=== PATIENT | male | born 1960 | race Caucasian/White ===

== ENCOUNTER 2022-12-23 12:26 | Outpatient (CLI) | payer MEDICAID, SELFPAY ==
--- NOTE | ~2022-12-23 | MR_ITS ---
MRI of the brain Clinical History: Early onset dementia Technique: Axial and sagittal T1-weighted images were acquired. These were followed by axial T2-weigh brad, diffusion weighted, gradient, and FLAIR images. Findings: There is no acute infarct, intracranial hemorrhage, or mass lesion. Mild to moderate chroni c white matter changes are present in the periventricular white matter bilaterally. Ventricles and subarachnoid spaces are unremarkable. Orbits are unremarkable. Paranasal sinuses and m astoid air cells are clear. Major intracranial flow voids are intact. Sagittal midline structures are intact. IMPRESSION: Mild to moderate chronic microvascular ischemic changes. No other significant findings. Reviewed, dictated and finalized at location M. CREW SPECIALIST
== END 2022-12-23 12:27 | disposition home or self-care (01) ==
PROVIDERS: PCP Family Medicine Adolescent Medicine; Visit Provider Family Medicine Adolescent Medicine
DX: F03.90 Unspecified dementia, unspecified severity, without behavioral disturbance, psychotic disturbance, mood disturbance, and anxiety (principal)
CPT/HCPCS: 70551

== ENCOUNTER 2023-12-14 09:09 | Inpatient (IN) | payer OTHER, SELFPAY ==
[2023-12-14] VITALS (11 sets, daily range): BP systolic 92–127; BP diastolic 64–85; PULSE 60–80; RESP 16–20; TEMP 35.9–36.8; O2SAT 97–100
--- NOTE | ~2023-12-14 | XR_ITS ---
EXAMINATION: XR surgery orthopedic DATE: 12/15/2023 17:15 BRAKE PRESS OPERATOR INDICATION: IT NAIL LT. . TECHNIQUE: 4 fluoroscopic images of the left hip were obtained during left intertrochanteric nail linda cement performed by the surgeon. I was not present in the operating room. Fluoroscopy exposure time w as 3 minutes 46 seconds. Air Kerma 38.349 mGy. DAP 0.7602 mGym2. COMPARISON: 12/14/2023 FINDINGS: Intertrochanteric nail fixation of the proximal left femur, bridging a comminuted intertrochanteric f racture into near-anatomic alignment. IMPRESSION: Fluoroscopic documentation of left intertrochanteric nail placement. Please refer to the operative no te for complete procedural details . Reviewed, dictated and finalized at location K. E PRESS OPERATOR IMPRESSION: Fluoroscopic documentation of left intertrochanteric nail placement. Please ref er to the operative note for complete procedural details .
--- NOTE | ~2023-12-14 | CT_ITS ---
Non-contrast Head CT History: Head injury Technique: Axial non-contrast imaging of the brain was performed. Dose reduction technique was used on this scan by utilizing automated exposure control and iterative reconstruction technique. The dose -length product (DLP) was 756.67 mGy-cm. Findings: There is no evidence of intracranial hemorrhage, mass lesion, or acute infarct. Brain par enchyma appears normal. The ventricles and subarachnoid spaces are normal in size. The calvarium ap pears normal. The visualized paranasal sinuses and mastoid air cells are clear. Impression: No significant abnormality seen. Reviewed, dictated and finalized at [facility]. LOPMENTAL THERAPIST Impression: No significant abnormality seen.
--- NOTE | ~2023-12-14 | XR_ITS ---
XR chest 1V portable DATE: 12/14/2023 10:20 INDICATION: Preoperative evaluation TECHNIQUE: Portable supine AP views COMPARISON: None FINDINGS: Normal heart size. No hilar or mediastinal enlargement. No pulmonary infiltrate or consolid ation, pleural effusion or pulmonary vascular congestion or pneumothorax is evident. Degenerative spu rring of the thoracic spine. IMPRESSION: No active cardiopulmonary disease Reviewed, dictated and finalized at location B. OR COST ANALYST
--- NOTE | ~2023-12-14 | XR_ITS ---
XR hip LT 2V w AP pelvis DATE: 12/14/2023 09:56 INDICATION: Fall today. Left hip pain, limited range of motion TECHNIQUE: AP pelvis. AP and crosstable lateral views of left hip. COMPARISON: None FINDINGS: There is a comminuted intertrochanteric left femoral fracture with varus deformity. Normal alignment at the pubic symphysis, sacroiliac joints and both hip joints. No pelvic fracture or bone destruction. IMPRESSION: Comminuted intertrochanteric left hip fracture with varus deformity Reviewed, dictated and finalized at location B. ORIZATION REPRESENTATIVE
--- NOTE | 2023-12-14 10:07 | ECG_ITS ---
Measurements Intervals [place] Rate: 65 P: 70 [place]: 172 QRS: 71 QRSD: 92 T: 79 QT: 424 QTc: 443 Interpretive Statements SINUS RHYTHM WITH SINUS ARRHYTHMIA CANNOT RULE OUT SEPTAL INFARCT, AGE INDETERMINATE BORDERLINE ST-T WAVE ABNORMALITY- HIGH LATERAL LEADS BASELINE WANDER- I, II, III, AVR, AVL, AVF, V4-V6 ABNORMAL ECG NO PREVIOUS ECG AVAILABLE FOR COMPARISON Electronically Signed On 12-14-2023 11:56:53 LINUX UNIX ENGINEER by Greg Watson D.O.
--- NOTE | 2023-12-14 10:17 | ED.FALL ---
HPI - Fall General Chief Complaint: Fall Stated Complaint: fall/ hip pain Time Seen by Provider: 12/14/23 09:34 History of Present Illness HPI Narrative: 63-year-old male history of dementia presenting to the emergency department for evaluation after having a ground level fall. Patient is unsure if he struck his head. Patient is complaining of left hip pain. Patient is not on any blood thinners and patient has no cardiac history. Related Data Allergies Allergy/AdvReac Type Severity Reaction Status Date / Time No Known Allergies Allergy Verified 09/04/23 10:20 Review of Systems Review of Systems: All systems reviewed & are unremarkable except as noted in HPI and below PMFSH Past Medical History Medical History Early onset Alzheimer's dementia Intertrochanteric fracture Family History Family History Father Colon cancer Lung cancer Mother Lung cancer Dementia Sibling Dementia Social History Social History Smoking status: Current every day smoker Alcohol intake: never Substance use: never Do You Feel Safe in your Home?: Yes Lack of Transportation: No Lack of Food: Never True Current Housing: I Have Housing Concerned About Future Housing: No Difficulty Paying Gas/Electric Bills: No Difficulty Paying for Meds: No Currently Unemployed: No Education: Decline to Answer Difficulty w/ Childcare or Family Care: No Spiritual care concerns: No Exam Narrative: APPEARANCE: Well appearing, no pain, no distress, well-nourished. HEAD: normocephalic, atraumatic. EYES: PERRLA/EOMI, conjunctivae clear. NOSE: Normal no drainage EARS:TMS clear with good light reflex. THROAT: Pharynx clear, no exudate. NECK: Supple. No adenopathy, no masses. RESPIRATORY: Airway patent, respirations nonlabored. Clear to auscultation bilaterally, no rales, rhonchi, wheezing. CARDIOVASCULAR: Regular rate and rhythm without murmurs rubs or gallops. ABDOMINAL: Soft, nontender, nondistended, normal bowel sounds MUSCULOSKELETAL: Neurovascularly intact, left hip tenderness to palpation NEURO: Alert. Cranial nerves II through XII intact. Grossly intact SKIN: Warm, dry. Normal Color Course Course Emergency Course: 63-year-old male presenting to the emergency department for evaluation after having a ground level fall, left hip x-ray does show an intertrochanteric fracture, head CT shows no acute abnormality. Orthopedics was consulted. Case was discussed with the hospitalist. Patient and family are updated on the results of the workup and plan for admission Vital Signs Vital signs: Vital Signs Temperature 98.2 F 12/14/23 09:08 Pulse Rate 60 12/14/23 09:08 Respiratory Rate 20 12/14/23 09:08 Blood Pressure 116/85 12/14/23 09:08 Pulse Oximetry 100 12/14/23 09:08 Temperature 96.7 F L 12/14/23 15:00 Pulse Rate 64 12/14/23 15:00 Respiratory Rate 18 12/14/23 15:00 Blood Pressure 127/76 12/14/23 15:00 Pulse Oximetry 97 12/14/23 15:27 Oxygen Delivery Room Air 12/14/23 15:27 Fraction of Inspired Oxygen 21 12/14/23 15:27 MDM - Fall Lab Data Attestation: I reviewed the patient's lab results. 12/14/23 10:12 12/14/23 10:12 Labs: Lab Results 12/14/23 Range/Units 10:12 WBC 13.2 H (4.5-10.0) K/mm3 RBC 4.80 (4.6-6.20) M/mm3 Hgb 14.2 (14.0-18.0) g/dL Hct 44.2 (42.0-52.0) % MCV 92.1 (80-100) fl MCH 29.6 (26-34) pg MCHC 32.1 (32-36) g/dl RDW 12.9 (11.5-14.5) % Plt Count 307 (150-375) k/mm3 MPV 10.1 (7.4-10.4) fl Immature Gran % (Auto) 0.5 (0-0.5) % Neut % (Auto) 83.8 H (45.5-73.1) % Lymph % (Auto) 9.9 L (18.3-44.2) % Gem % (Auto) 5.2 (2.6-8.5) % Eos % (Auto) 0.2 (0-4.4) % Baso % (Auto) 0.4 (0.2-1.2) % Lymph # (Aut
[2023-12-14 10:20] LABS: Basophils Absolute Auto 0.1 K/mm3 (0.0-0.1); Basophils Percent Auto 0.4 % (0.2-1.2); Eosinophils Percent Auto 0.2 % (0-4.4); Hematocrit 44.2 % (42.0-52.0); Hemoglobin 14.2 g/dL (14.0-18.0); Immature Granulocyte Absolute 0.06 K/mm3 (0.00-0.031); Immature Granulocyte Percent A 0.5 % (0-0.5); Lymphocytes Absolute Auto 1.31 K/mm3 (0.9-3.2); Lymphocytes Percent Auto 9.9 % (18.3-44.2); Mean Corpuscular HGB Conc 32.1 g/dl (32-36); Mean Corpuscular Hemoglobin 29.6 pg (26-34); Mean Corpuscular Volume 92.1 fl (80-100); Mean Platelet Volume 10.1 fl (7.4-10.4); Monocytes Absolute Auto 0.7 K/mm3 (0.1-0.6); Monocytes Percent Auto 5.2 % (2.6-8.5); Neutrophils Absolute Auto 11.1 K/mm3 (1.3-6.7); Neutrophils Percent Auto 83.8 % (45.5-73.1); Platelet Count Result 307 k/mm3 (150-375); Red Cell Distribution Width 12.9 % (11.5-14.5); White Blood Count 13.2 K/mm3 (4.5-10.0)
[2023-12-14 10:32] LABS: Alanine Aminotransferase 18 U/L (6-50); Albumin Level 3.8 g/dL (3.5-5.1); Alkaline Phosphatase 102 U/L (38-126); Anion Gap 7 mmol/L (8-16); Aspartate Amino Transferase 19 U/L (17-59); Blood Urea Nitrogen 14 mg/dL (9-20); Carbon Dioxide 24 mmol/L (22-30); Chloride 107 mmol/L (98-107); Estimated CRCL calculation 90 ml/min; Estimated Glomerular Filt Rate > 60; Glucose 121 mg/dL (65-110); Partial Thromboplastin Time 26.9 SECONDS (22.3-36.8); Potassium 3.6 mmol/L (3.4-5.0); Prothrombin Time 13.9 Seconds (11.1-14.7); Sodium 138 mmol/L (137-145)
--- NOTE | 2023-12-14 12:10 | PC.NURSE ---
Heart healthy tray ordered at 1210
--- NOTE | 2023-12-14 12:15 | PM.IMHP ---
H&P: HPI History of Present Illness Date/Time: 12/14/23 12:15 Chief Complaint: Lt hip pain, fracture Narrative: This is a 63-year-old male patient with advanced early-onset dementia and depression who had an unwitnessed fall at home complaining of left hip pain. Brought to ER via EMS found to have left hip fracture. Orthopedics consulted agreed to see him and likely operative repair tomorrow. Patient's family was at bedside for a while and then they walked away and patient forgot that he had injured his hip tried to get out of bed and had another unwitnessed fall this time in the emergency department. No additional complaints of pain or evident injury and patient was evaluated by ER provider who initially evaluated him. Patient's only complaint is left hip pain to palpation or certain movements. Patient does smoke whenever he has cigarettes but can go several days without asking for cigarettes. He lives with significant other and his sisters also present providing a lot of information. Patient has very poor memory especially short-term. Review of Systems Review of Systems: ROS unobtainable: Yes unobtainable due to mental status PMFSH Past Medical History Medical History Early onset Alzheimer's dementia Intertrochanteric fracture Family History Family History Father Colon cancer Lung cancer Mother Lung cancer Dementia Sibling Dementia Social History Social History Smoking status: Current every day smoker Alcohol intake: never Substance use: never Do You Feel Safe in your Home?: Yes Lack of Transportation: No Lack of Food: Never True Current Housing: I Have Housing Concerned About Future Housing: No Difficulty Paying Gas/Electric Bills: No Difficulty Paying for Meds: No Currently Unemployed: No Education: Decline to Answer Difficulty w/ Childcare or Family Care: No Spiritual care concerns: No Meds Home Medications and Allergies Home Medications Medication Instructions Recorded Confirmed Type donepezil 10 mg tablet 10 mg PO QHS #30 tabs 04/08/23 12/14/23 Rx sertraline 50 mg tablet 50 mg PO DAILY #90 tabs 10/01/23 12/14/23 Rx memantine 10 mg tablet 10 mg PO BID #60 tabs 11/01/23 12/14/23 Rx Allergies Allergy/AdvReac Type Severity Reaction Status Date / Time No Known Allergies Allergy Verified 09/04/23 10:20 Vital Signs Vital Signs - 24 hr 12/14/23 09:08 12/14/23 09:57 12/14/23 10:00 Temperature 36.8 C Pulse Rate 60 Respiratory Rate 20 Blood Pressure 116/85 Pulse Oximetry 100 98 99 12/14/23 10:01 12/14/23 10:15 12/14/23 10:16 Temperature Pulse Rate Respiratory Rate Blood Pressure 112/65 115/71 Pulse Oximetry 99 99 97 12/14/23 10:38 Temperature Pulse Rate Respiratory Rate Blood Pressure 114/70 Pulse Oximetry Exam Narrative: APPEARANCE: Well appearing, no distress, well-nourished. HEAD: normocephalic, atraumatic. EYES: PERRLA/EOMI, conjunctivae clear. NOSE: Normal no drainage NECK: Supple. No adenopathy, no masses. RESPIRATORY: Airway patent, respirations nonlabored. Clear to auscultation bilaterally, no rales, rhonchi, wheezing. CARDIOVASCULAR: Regular rate and rhythm without murmurs rubs or gallops. ABDOMINAL: Soft, nontender, nondistended, normal bowel sounds MUSCULOSKELETAL: Neurovascularly intact, left hip tenderness to palpation NEURO: Alert. Cranial nerves II through XII intact. Grossly intact SKIN: Warm, dry. Normal Color H&P: Results Labs Labs: Short CBC 12/14/23 Range/Units 10:12 WBC 13.2 H (4.5-10.0) K/mm3 Hgb 14.2 (14.0-18.0) g/dL Hct 44.2 (42.0-52.0) % Plt Count 307 (150-375) k/mm3 [facility] 12/14/23 10:12 Sodium 138 Potassium 3.6 Chloride 107 Carbon Dioxide 24 BUN 14 Creatinine 0.80
--- NOTE | 2023-12-14 12:38 | PC.NURSE ---
food tray given to pt
[2023-12-14] MEDS: HYDROmorphone HCL INJ (*CRX) 1 MG/ML SYR 0.5 MG IV PUSH ×3 (13:32→22:58)
[2023-12-14] MEDS: ONDANSETRON INJ 4 MG/2 ML VIAL IV PUSH (13:32)
--- NOTE | 2023-12-14 13:38 | PC.NURSE ---
Pt forgot about injury to the hip, attempted to get out of bed to urinate and fell. No other injuries noted, Dr. Abad aware, pt was assisted into bed.
[2023-12-14 14:07] LABS: Appearance Urine Turbid (Clear); Bacteria Urine None Seen /hpf; Bilirubin Urine Negative (Negative); Color Urine Yellow (Yellow); Glucose Urine UA Negative (Negative); Ketones Urine Negative (Negative); Leukocyte Esterase Ur Negative LEU/UL (Negative); Nitrate Urine Negative (Negative); Non Pathogenic Casts 0-2; Protein Urine Trace mg/dL (Negative); Specific Grav Ur 1.016 (1.001-1.035); Squamous Epithelial Cell Urine None seen /hpf (Few); Urobilinogen Urine 0.2 mg/dL (<2.0); WBC Urine 0-5 /hpf; pH Urine 8.5 (5.0-9.0)
[2023-12-14 14:11] LABS: Add Urine Microscopic? YES
--- NOTE | 2023-12-14 14:25 | ADMGEN ---
This patient, Mauricio Simmons, was admitted to [facility] Surg Room 325-01. Patient/family oriented to hospital policies and general routines including ID bracelet, bed and alarms, visiting hours, pain management, procedures, bathroom and other care routines, personal items, smoking policy, room service/diet, and visiting hours. Information on how to activate the Rapid Response Team has been discussed. Patient/Family are encouraged to report perceived risks to care and to ask questions if they do not understand what they are told or what they should do.
--- NOTE | 2023-12-14 15:43 | PM.CNOR ---
Assessment and Plan Assessment and plan (1) Intertrochanteric fracture: Qualifiers: Encounter type: initial encounter Fracture type: closed Fracture alignment: displaced Laterality: left Qualified Code(s): S72.142A - Displaced intertrochanteric fracture of left femur, initial encounter for closed fracture Code(s): S72.143A - Displaced intertrochanteric fracture of unspecified femur, initial encounter for closed fracture Status: Acute Assessment and Plan: History, exam and radiographs reviewed with the patient and his sister who is his power of pipefitter welder at the bedside. Radiographs of the left hip reveal comminuted intertrochanteric left hip fracture with varus deformity. Fracture type, condition, nature, etiology and course of natural history reviewed. Conservative and operative treatment options as well as the risks and benefits of both discussed. Patient and sister for for operative treatment. Risks of surgery including but not limited to neurovascular damage, wound complications, blood clot, pulmonary embolus, stroke, myocardial infarction, anesthetic risks up to and including were reviewed. Continued pain and possible dysfunction were explained. No guarantees were offered. The patient /family understands and wishes to proceed. Plan: Left IT Nail by Dr. Hines Pain Control. Hold anticoagulation. Obtain consent. NPO at midnight. Okay to eat today, diet orders from hospitalist. Bedrest. HIGH FALL RISK PRECAUTIONS given patients memory loss. (2) Early onset Alzheimer's dementia: Code(s): G30.0 - Alzheimer's disease with early onset; F02.80 - Dementia in other diseases classified elsewhere, unspecified severity, without behavioral disturbance, psychotic disturbance, mood disturbance, and anxiety Status: Acute Assessment and Plan: POA at bedside. Obtain consent from patient's sister. High fall risk precautions. Plan Reviewed history, exam, radiographs and current labs with attending MD and covering surgeon, Dr. Hines, who agrees with current plan as indicated above. No further recommendations from Dr. Hines at this time. History of Present Illness HPI Consult date: 12/14/23 Consult reason: fracture Chief complaint: Left Hip Fracture Narrative: 63-year-old male presented to the emergency room from home accompanied by his sister after an unwitnessed fall. The patient has a history of early-onset dementia cannot recall the nature of his fall. His girlfriend found him in the basement in the bathroom using a PVC pipe to ambulate. He was unable to ambulate on the left lower extremity and they thought that it was dislocated. This prompted their arrival to the emergency room. Radiographs in the ER reveal a comminuted intertrochanteric fracture of the left hip with varus deformity. Patient was admitted for further evaluation and orthopedic consult. Review of Systems Constitutional: Constitutional: Reports no additional constitutional complaints, Denies chills, Denies fatigue, Denies fever(s), Denies headache(s) and Denies weakness Eyes: Eyes: Denies change in vision ENT: Reports Normal hearing present and Denies headache(s) Cardiovascular: Cardiovascular: Denies chest pain and Denies dyspnea Respiratory: Respiratory: Denies cough, Denies dyspnea and Denies wheezing Gastrointestinal: Gastrointestinal: Denies constipation, Denies diarrhea, Denies nausea and Denies vomiting Genitourinary: Genitourinary: Denies hematuria and Denies dysuria Musculoskeletal: Musculoskeletal: Reports as per HPI, Denies numbness and Denies tingling Integumentary/Breasts: Skin/Breast: Reports as per HPI Neurologic: Reports as per HPI, Reports Normal hearing present, Denies headache(s), Denies numbness, Denies tingling and Denies weakness Psychiatric: Psychiatric: Reports no additional psychiatric complaints Endocrine: Endocrine: Reports no additional endocrine complaints and Denies fatigu
[2023-12-14] MEDS: MEMANTINE 10 MG TABLET PO (17:25)
[2023-12-14] MEDS: HYDROcodone/acetaminophen (*CRX) 5-325 MG TABLET 1 TAB PO ×2 (20:08→23:50)
[2023-12-14] MEDS: DONEPEZIL HCL 10 MG TABLET PO (20:08)
[2023-12-14] MEDS: SODIUM CHLORIDE 0.9% IV 1,000 ML 100 ML IV CONT (23:05)
[2023-12-15] VITALS (10 sets, daily range): BP systolic 88–124; BP diastolic 48–80; PULSE 61–135; RESP 8–22; TEMP 36.5–36.8; O2SAT 92–100
[2023-12-15] MEDS: CYCLOBENZAPRINE HCL 10 MG TABLET PO (00:27)
[2023-12-15] MEDS: HYDROmorphone HCL INJ (*CRX) 1 MG/ML SYR IV PUSH ×3 (05:09→21:11)
[2023-12-15] MEDS: HYDROcodone/acetaminophen (*CRX) 5-325 MG TABLET 1 TAB PO (06:33)
[2023-12-15 06:47] LABS: Basophils Percent Auto 0.2 % (0.2-1.2); Eosinophils Percent Auto 0.1 % (0-4.4); Hematocrit 39.5 % (42.0-52.0); Immature Granulocyte Absolute 0.07 K/mm3 (0.00-0.031); Immature Granulocyte Percent A 0.5 % (0-0.5); Lymphocytes Absolute Auto 1.81 K/mm3 (0.9-3.2); Lymphocytes Percent Auto 12.6 % (18.3-44.2); Mean Corpuscular HGB Conc 32.9 g/dl (32-36); Mean Corpuscular Hemoglobin 29.8 pg (26-34); Mean Corpuscular Volume 90.6 fl (80-100); Mean Platelet Volume 9.5 fl (7.4-10.4); Monocytes Absolute Auto 1.7 K/mm3 (0.1-0.6); Monocytes Percent Auto 11.5 % (2.6-8.5); Neutrophils Absolute Auto 10.8 K/mm3 (1.3-6.7); Neutrophils Percent Auto 75.1 % (45.5-73.1); Platelet Count Result 289 k/mm3 (150-375); Red Blood Count 4.36 M/mm3 (4.6-6.20); Red Cell Distribution Width 12.9 % (11.5-14.5); White Blood Count 14.4 K/mm3 (4.5-10.0)
[2023-12-15 07:00] LABS: Alanine Aminotransferase 17 U/L (6-50); Albumin Level 3.5 g/dL (3.5-5.1); Alkaline Phosphatase 84 U/L (38-126); Anion Gap 5 mmol/L (8-16); Aspartate Amino Transferase 20 U/L (17-59); Bilirubin,Total 0.9 mg/dL (0.2-1.3); Blood Urea Nitrogen 14 mg/dL (9-20); Calcium 8.6 mg/dL (8.4-10.2); Carbon Dioxide 24 mmol/L (22-30); Chloride 107 mmol/L (98-107); Estimated CRCL calculation 90 ml/min; Estimated Glomerular Filt Rate > 60; Glucose 123 mg/dL (65-110); Magnesium 2.2 mg/dL (1.6-2.3); Potassium 4.1 mmol/L (3.4-5.0); Sodium 136 mmol/L (137-145)
--- NOTE | 2023-12-15 07:20 | WPDHPUPDATE1 ---
History and Physical Update Update Date/Time: 12/15/23 07:20 History and Physical has been reviewed, including an updated exam of the patient. There are NO changes in the patient's condition. Risks, benefits, and alternatives have been discussed and questions answered. Patient agrees to proceed with procedure.
[2023-12-15] MEDS: SERTRALINE HCL 50 MG TABLET PO (10:00)
[2023-12-15] MEDS: MEMANTINE 10 MG TABLET PO (10:00)
[2023-12-15] MEDS: SODIUM CHLORIDE 0.9% IV 1,000 ML 100 ML IV CONT (11:45)
--- NOTE | 2023-12-15 15:04 | PM.IMPN ---
Progress Note: A&P Assessment and Plan (1) Intertrochanteric fracture: Qualifiers: Encounter type: initial encounter Fracture type: closed Fracture alignment: displaced Laterality: left Qualified Code(s): S72.142A - Displaced intertrochanteric fracture of left femur, initial encounter for closed fracture Code(s): S72.143A - Displaced intertrochanteric fracture of unspecified femur, initial encounter for closed fracture Status: Acute Assessment and Plan: Dr. Lombardi - plan for Left IT Nail this evening PRN pain control will order PT/OT post op for d/c planning (2) Early onset Alzheimer's dementia: Code(s): G30.0 - Alzheimer's disease with early onset; F02.80 - Dementia in other diseases classified elsewhere, unspecified severity, without behavioral disturbance, psychotic disturbance, mood disturbance, and anxiety Status: Acute Assessment and Plan: Impulsive and forgetful Fall precautions. continue home meds Subjective Date/time seen: 12/15/23 15:04 Interval history: Patient in no acute distress today, at his baseline. at bedside. He reports tenderness over his left hip with movement and palpation, but controlled. Ortho - Dr. Lombardi to take to OR for repair this evening. Will order PT/OT for d/c planning when appropriate. Review of Systems Review of Systems: ROS unobtainable: Yes unobtainable due to mental status Exam Narrative: APPEARANCE: Well appearing, no distress, well-nourished. HEAD: normocephalic, atraumatic. EYES: PERRLA/EOMI NECK: Supple. No adenopathy, no masses. RESPIRATORY: Airway patent, respirations nonlabored. Clear to auscultation bilaterally, no rales, rhonchi, wheezing. CARDIOVASCULAR: RRR without murmurs rubs or gallops. ABDOMINAL: Soft, nontender, nondistended, normal bowel sounds MUSCULOSKELETAL: Neurovascularly intact, left hip tenderness to palpation NEURO: Alert. Cranial nerves II through XII intact. Grossly intact SKIN: Warm, dry. Normal Color. PSYCH: Difficult, but appropriate. Objective Data Vital Signs Vital Signs: Vital Signs - 24 hr 12/14/23 15:27 12/14/23 20:17 12/14/23 20:00 Temperature 97.9 F Pulse Rate 80 Respiratory Rate 16 Blood Pressure 92/64 L Pulse Oximetry 97 98 Oxygen Delivery Room Air Room Air Fraction of Inspired Oxygen 12/15/23 05:55 Temperature 97.9 F Pulse Rate 61 Respiratory Rate 16 Blood Pressure 115/71 Pulse Oximetry 95 Oxygen Delivery Fraction of Inspired Oxygen Intake/Output Intake/Output: Intake & Output 12/12/23 12/13/23 12/14/23 12/15/23 23:59 23:59 23:59 23:59 Intake Total 490 1550 Output Total 200 500 Balance 290 1050 Meds/Results Medications: Active Medications Generic Name Dose Route Start Last Admin Trade Name Freq PRN Reason Stop Dose Admin Acetaminophen 650 mg 12/14/23 14:55 Acetaminophen 325 Mg Tablet PO Q4H PRN Mild Pain (1-3) or Fever Hydrocodone Bitart/Acetaminophen 1 tab 12/14/23 14:55 12/15/23 06:33 Hydrocodone/Acetaminophen (*Crx) 5-325 Mg Tablet PO 1 tab Q4H PRN Administration Pain Rated 4-6 Cyclobenzaprine HCl 10 mg 12/14/23 23:59 12/15/23 00:27 Cyclobenzaprine Hcl 10 Mg Tablet PO 10 mg Q8H PRN Administration Muscle Spasm Donepezil HCl 10 mg 12/14/23 21:00 12/14/23 20:08 Donepezil Hcl 10 Mg Tablet PO 10 mg QHS VANDA Administration Hydromorphone HCl 1 mg 12/15/23 00:04 12/15/23 12:49 Hydromorphone Hcl Inj (*Crx) 1 Mg/Ml Syr IV PUSH 1 mg Q3H PRN Administration Pain Rated 7-10 Sodium Chloride 1,000 mls @ 100 mls/hr 12/15/23 00:01 12/15/23 11:45 Normal Saline Iv IV CONT 100 mls/hr .Q10H VANDA Administration Memantine 10 mg 12/14/23 17:00 12/15/23 10:00 Memantine 10 Mg Tablet PO 10 mg BID VANDA Administration Ondansetron HCl 4 mg 12/14/23 10:22 12/14/23 13:32 Ondansetron Inj 4 Mg/2 Ml Vial IV PUSH 4 mg Q4H PRN
[2023-12-15] MEDS: TRANEXAMIC ACID 1,000MG/ISO100 1,000 MG/100 ML BAG 200 MG IVPB (15:54)
--- NOTE | 2023-12-15 16:16 | WPDANESEPPF ---
Anes - Initial Pre Proc Eval Procedure: Operation Date: 12/15/23 17:00 Proposed Procedures p Left Intertrochanteric Nail - Branden Hines MD Date/Time: 12/15/23 16:16 Surgeon: Martha Mendoza MD Pre Op Diagnosis: Left Hip Fracture Patient Data Age: 63 Gender: M Height: 1.93 m Weight: 76.7 kg Last Vital Signs Temp 36.6 C 12/15/23 05:55 Pulse 61 12/15/23 05:55 Resp 16 12/15/23 05:55 BP 115/71 12/15/23 05:55 Pulse Ox 95 12/15/23 05:55 O2 Del Method Room Air 12/15/23 10:00 FiO2 21 12/14/23 15:27 Allergies Allergy/AdvReac Type Severity Reaction Status Date / Time No Known Allergies Allergy Verified 12/15/23 15:47 Home Medications Medication Instructions Recorded Confirmed Type donepezil 10 mg tablet 10 mg PO QHS #30 tabs 04/08/23 12/14/23 Rx sertraline 50 mg tablet 50 mg PO DAILY #90 tabs 10/01/23 12/14/23 Rx memantine 10 mg tablet 10 mg PO BID #60 tabs 11/01/23 12/14/23 Rx Laboratory Tests 12/15/23 06:34 WBC 14.4 H K/mm3 (4.5-10.0) RBC 4.36 L M/mm3 (4.6-6.20) Hgb 13.0 L g/dL (14.0-18.0) Hct 39.5 L % (42.0-52.0) MCV 90.6 fl (80-100) MCH 29.8 pg (26-34) MCHC 32.9 g/dl (32-36) RDW 12.9 % (11.5-14.5) Plt Count 289 k/mm3 (150-375) MPV 9.5 fl (7.4-10.4) Immature Gran % (Auto) 0.5 % (0-0.5) Neut % (Auto) 75.1 H % (45.5-73.1) Lymph % (Auto) 12.6 L % (18.3-44.2) [place] % (Auto) 11.5 H % (2.6-8.5) Eos % (Auto) 0.1 % (0-4.4) Baso % (Auto) 0.2 % (0.2-1.2) Lymph # (Auto) 1.81 K/mm3 (0.9-3.2) [place] # (Auto) 1.7 H K/mm3 (0.1-0.6) Eos # (Auto) 0.0 K/mm3 (0-0.3) Baso # (Auto) 0.0 K/mm3 (0.0-0.1) Abs Immat Gran (auto) 0.07 H K/mm3 (0.00-0.031) Absolute Neuts (auto) 10.8 H K/mm3 (1.3-6.7) Absolute Nucleated RBC 0.0 K/mm3 (0.0-0.012) Nucleated RBC % 0.0 % (0.0-0.2) Sodium 136 L mmol/L (137-145) Potassium 4.1 mmol/L (3.4-5.0) Chloride 107 mmol/L (98-107) Carbon Dioxide 24 mmol/L (22-30) Anion Gap 5 L mmol/L (8-16) BUN 14 mg/dL (9-20) Creatinine 0.80 mg/dL (0.7-1.3) Estim Creat Clear Calc 90 ml/min Estimated GFR > 60 (59 - ) Glucose 123 H mg/dL (65-110) Calcium 8.6 mg/dL (8.4-10.2) Magnesium 2.2 mg/dL (1.6-2.3) Total Bilirubin 0.9 mg/dL (0.2-1.3) AST 20 U/L (17-59) ALT 17 U/L (6-50) Alkaline Phosphatase 84 U/L (38-126) Total Protein 6.0 L g/dL (6.3-8.2) Albumin 3.5 g/dL (3.5-5.1) Patient hx anesthesia problems: none Family hx anesthesia problems: none Results Review: All pre-operative results and documents have been reviewed as part of the pre-operative evaluation. [facility] Past Medical History Medical History Early onset Alzheimer's dementia Intertrochanteric fracture Family History Family History Father Colon cancer Lung cancer Mother Lung cancer Dementia Sibling Dementia Social History Social History Smoking status: Current every day smoker Alcohol intake: never Substance use: never Do You Feel Safe in your Home?: Yes Lack of Transportation: No Lack of Food: Never True Current Housing: I Have Housing Concerned About Future Housing: No Difficulty Paying Gas/Electric Bills: No Difficulty Paying for Meds: No Currently Unemployed: No Education: Decline to Answer Difficulty w/ Childcare or Family Care: No Spiritual care concerns: No Anes - Eval Final PreProcedure Day of Procedure 12/15/23 16:16 Patient weight: normal Heart: regular rate and rhythm Lungs: decreased breath sounds Airway: Mallampati scale class II Neurological: alert and oriented Last oral intake: >/= 8 hours ASA classification: III Sabina
[2023-12-15] MEDS: LACTATED RINGERS 1,000 ML 30 ML IV CONT ×2 (16:43→18:27)
--- NOTE | 2023-12-15 16:51 | SUR.PHASEII ---
2238 DR. PADILLA HERE TO SEE PT.
--- NOTE | 2023-12-15 16:51 | SUR.PREOP ---
VOIDED X 1.
--- NOTE | 2023-12-15 16:52 | SUR.PREOP ---
PATIENT AWAKE, ALERT, AWAITING SURGERY. NAD.
--- NOTE | 2023-12-15 17:00 | SUR.PREOP ---
DR. LIMA HERE TO SEE PATIENT AND TO GAMA SITE. DAT INSTRUCTOR'S HERE.
[2023-12-15] MEDS: ceFAZolin 2 GM/D5W 50 ML 2 GM/50 ML BAG IVPB (17:04)
[2023-12-15] MEDS: TRANEXAMIC ACID 1,000 MG/10 ML AMPUL 1000 MG IV PUSH (18:14)
--- NOTE | 2023-12-15 18:19 | W.PM.PROC2 ---
Procedure Note - Detailed Date of Procedure 12/15/23 Pre-op Diagnosis Left Hip Fracture Post-op Diagnosis Same Procedure Performed INSERTION INTRAMEDULLARY ADRIANNA LEFT HIP Surgeon Branden Hines MD Anesthesia General Description of Procedure THE PATIENT WAS TAKEN TO THE OPERATING ROOM AND PLACED ON A FRACTURE TABLE AFTER GIVEN GENERAL ANESTHESIA. THE LEFT LOWER EXTREMITY WAS PLACED IN A TRACTION BOOT AND USING SOME TRACTION AND INTERNAL ROTATION THE INNER TROCHANTERIC FRACTURE WAS REDUCED TO ANATOMIC POSITION. NEXT THE LEFT LOWER EXTREMITY WAS PREPPED AND DRAPED IN THE STERILE FASHION. AN INCISION WAS MADE PROXIMAL TO THE TIP OF THE GREATER TROCHANTER AND DISSECTION CONTINUED TILL THE TIP OF THE GREATER TROCHANTER WAS PALPATED. A GUIDE PIN WAS PLACED DOWN THE FEMORAL CANAL AND PAST THE FRACTURE SITE. THIS WAS CHECKED ON FLUOROSCOPY AND FOUND TO BE IN GOOD POSITION. AN INITIAL REAMER WAS USED TO REAM THE FEMORAL CANAL. AN 11 BY 200 MM ARTHREX TROCHANTERIC ADRIANNA WAS INSERTED TILL THE CORRECT POSITION WAS IDENTIFIED ON XRAY. A GUIDE PIN WAS INSERTED THROUGH THE FEMORAL NECK AT 125 DEG ANGLE TILL IT REACHED THE TIP OF THE SUB CHONDRAL BONE SEEN ON XRAY. AFTER REAMING, LAG SCREW WAS INSERTED MEASURING 110 MM. XRAYS SHOWED IT TO BE IN GOOD POSITION. THE LAG SCREW WAS LOCKED PROXIMALLY WITH A LOCKING SCREW. NEXT A DISTAL LOCKING SCREW WAS PLACED ACROSS THE ADRIANNA AND WAS IN GOOD POSITION ON XRAY. THE TRACTION WAS RELEASED. THE WOUNDS WERE WASHED. THE DEEP FASCIA WAS REPAIRED WITH 0 VICRYL SUTURE, THE SUB CUTANEOUS LAYER WITH 2-0 VICRYL, AND THE SKIN WITH ZAHEER. THE WOUNDS WERE WASHED AND THEN STERILE DRESSING WAS APPLIED. PATIENT WAS EXTUBATED AND SENT TO RECOVERY ROOM. Estimated Blood Loss 100 Urine Output 500 Complications No immediate complications Condition Stable Disposition PACU
[2023-12-15] MEDS: LORazepam INJ (*CRX) 2 MG/ML VIAL 1 MG IV PUSH (21:40)
[2023-12-15] MEDS: HALOPERIDOL LACTATE 5 MG/ML VIAL IM (21:40)
[2023-12-15] MEDS: diphenhydrAMINE HCl INJ 50 MG/ML VIAL IV PUSH (21:50)
--- NOTE | 2023-12-15 22:09 | ECG_ITS ---
Measurements Intervals [place] Rate: 104 P: 79 KS: 170 QRS: 51 QRSD: 89 T: 32 QT: 333 QTc: 439 Interpretive Statements SINUS TACHYCARDIA BORDERLINE ST-T WAVE ABNORMALITY- ANTEROLAT/INF LEADS BASELINE ARTIFACT- I, II, III, AVR, AVL, AVF, V1-V2, V4-V5 BORDERLINE ECG COMPARED TO ECG 12/14/2023 10:36:11 SINUS TACHYCARDIA NOW PRESENT Electronically Signed On 12-16-2023 15:53:22 TUMBLER PLATER by Greg Watson D.O.
--- NOTE | 2023-12-15 22:26 | PC.NURSE ---
Pt came back to the unit from OR this evening right after shift change. Pt was getting agitated quickly after arrival to unit. Pt was trying to get up, climbing over rails, and becoming aggressive towards staff. Situation was worsening and a code purple was called. notified and medication orders given. Pt given medication with no direct results. Pt continued to get more aggressive, and was put in 3 point restraints with his operative side, remaining free of restraints. Medication finally began to calm pt, right ankle restraint was removed, and pt remains in soft wrist restraints. Pt now resting comfortably with stable vital signs and a sitter at bedside.
[2023-12-16 01:00] VITALS: BP 111/54; PULSE 92; RESP 19; O2SAT 100
[2023-12-16 03:35] VITALS: BP 118/62; PULSE 81; RESP 19; O2SAT 100
[2023-12-16] MEDS: HYDROmorphone HCL INJ (*CRX) 1 MG/ML SYR IV PUSH ×2 (03:46→06:23)
[2023-12-16 05:00] VITALS: BP 122/64; PULSE 74; RESP 19; O2SAT 100
[2023-12-16 07:31] LABS: Basophils Percent Auto 0.3 % (0.2-1.2); Hematocrit 37.7 % (42.0-52.0); Hemoglobin 12.1 g/dL (14.0-18.0); Immature Granulocyte Absolute 0.09 K/mm3 (0.00-0.031); Immature Granulocyte Percent A 0.6 % (0-0.5); Lymphocytes Absolute Auto 1.26 K/mm3 (0.9-3.2); Lymphocytes Percent Auto 8.4 % (18.3-44.2); Mean Corpuscular HGB Conc 32.1 g/dl (32-36); Mean Corpuscular Hemoglobin 30.2 pg (26-34); Mean Platelet Volume 9.7 fl (7.4-10.4); Monocytes Absolute Auto 1.8 K/mm3 (0.1-0.6); Monocytes Percent Auto 11.8 % (2.6-8.5); Neutrophils Absolute Auto 11.8 K/mm3 (1.3-6.7); Neutrophils Percent Auto 78.9 % (45.5-73.1); Platelet Count Result 258 k/mm3 (150-375); Red Blood Count 4.01 M/mm3 (4.6-6.20); Red Cell Distribution Width 13.2 % (11.5-14.5)
[2023-12-16 07:47] LABS: Alanine Aminotransferase 25 U/L (6-50); Albumin Level 3.4 g/dL (3.5-5.1); Alkaline Phosphatase 77 U/L (38-126); Anion Gap 7 mmol/L (8-16); Aspartate Amino Transferase 64 U/L (17-59); Bilirubin,Total 1.2 mg/dL (0.2-1.3); Blood Urea Nitrogen 15 mg/dL (9-20); Calcium 8.3 mg/dL (8.4-10.2); Carbon Dioxide 26 mmol/L (22-30); Chloride 106 mmol/L (98-107); Estimated CRCL calculation 81 ml/min; Estimated Glomerular Filt Rate > 60; Glucose 119 mg/dL (65-110); Magnesium 2.3 mg/dL (1.6-2.3); Sodium 139 mmol/L (137-145)
[2023-12-16 08:00] VITALS: PULSE 82; O2SAT 95
[2023-12-16] MEDS: ceFAZolin 2 GM/D5W 50 ML 2 GM/50 ML BAG IVPB ×3 (08:41→22:48)
[2023-12-16] MEDS: SODIUM CHLORIDE 0.9% IV 1,000 ML 125 ML IV CONT (08:41)
[2023-12-16] MEDS: polyethylene glycoL 3350 17 GM POWD.PACK PO (08:46)
[2023-12-16] MEDS: ASPIRIN 325 MG ENTERIC TABLET PO ×2 (08:48→20:57)
[2023-12-16] MEDS: MEMANTINE 10 MG TABLET PO ×2 (08:48→16:47)
[2023-12-16] MEDS: SENNA/DOCUSATE SODIUM TABLET 2 TAB PO ×2 (08:48→16:47)
[2023-12-16] MEDS: FAMOTIDINE 20 MG TABLET PO ×2 (08:48→20:57)
[2023-12-16] MEDS: SERTRALINE HCL 50 MG TABLET PO (08:49)
[2023-12-16 09:05] VITALS: BP 105/64; PULSE 50; RESP 22; TEMP 37; O2SAT 97
[2023-12-16] MEDS: ACETAMINOPHEN 325 MG TABLET 650 MG PO (10:02)
[2023-12-16] MEDS: LORazepam INJ (*CRX) 2 MG/ML VIAL 1 MG IV PUSH (12:37)
[2023-12-16] MEDS: HALOPERIDOL LACTATE 5 MG/ML VIAL IM (12:40)
--- NOTE | 2023-12-16 13:50 | WPDANESPN ---
Anes - Prog Note Post-Op Date/Time: 12/16/23 13:50 Cardiovascular status: normal Respiratory status: normal Airway patency: baseline Mental status: baseline Post-Op hydration status: normal Vital Signs: Last Vital Signs Temp 98.6 F 12/16/23 09:05 Pulse 50 L 12/16/23 09:05 Resp 22 H 12/16/23 09:05 BP 105/64 12/16/23 09:05 Pulse Ox 97 12/16/23 09:05 O2 Del Method Room Air 12/16/23 10:35 O2 Flow Rate 6 12/15/23 18:55 FiO2 21 12/14/23 15:27 Pain Score (VAS): 0/10 I/O: Intake & Output 12/15/23 12/16/23 12/16/23 23:59 07:59 15:59 Intake Total 800 0 290 Output Total 610 1000 100 Balance 190 -1000 190 Laboratory Tests 12/16/23 07:24 12/16/23 07:24 12/16/23 07:24 WBC 15.0 H RBC 4.01 L Hgb 12.1 L Hct 37.7 L MCV 94.0 MCH 30.2 MCHC 32.1 RDW 13.2 Plt Count 258 MPV 9.7 Immature Gran % (Auto) 0.6 H Neut % (Auto) 78.9 H Lymph % (Auto) 8.4 L Kinney % (Auto) 11.8 H Eos % (Auto) 0.0 Baso % (Auto) 0.3 Lymph # (Auto) 1.26 Kinney # (Auto) 1.8 H Eos # (Auto) 0.0 Baso # (Auto) 0.0 Abs Immat Gran (auto) 0.09 H Absolute Neuts (auto) 11.8 H Absolute Nucleated RBC 0.0 Nucleated RBC % 0.0 Sodium 139 Potassium 4.0 Chloride 106 Carbon Dioxide 26 Anion Gap 7 L BUN 15 Creatinine 0.90 Estim Creat Clear Calc 81 Estimated GFR > 60 Glucose 119 H Calcium 8.3 L Magnesium 2.3 Total Bilirubin 1.2 AST 64 H ALT 25 Alkaline Phosphatase 77 Total Protein 6.0 L Albumin 3.4 L Post-procedural complaints: none Patient Feedback: Patient satisfied with anesthetic care.
--- NOTE | 2023-12-16 14:36 | PM.IMPN ---
Progress Note: A&P Assessment and Plan (1) Intertrochanteric fracture: Qualifiers: Encounter type: initial encounter Fracture type: closed Fracture alignment: displaced Laterality: left Qualified Code(s): S72.142A - Displaced intertrochanteric fracture of left femur, initial encounter for closed fracture Code(s): S72.143A - Displaced intertrochanteric fracture of unspecified femur, initial encounter for closed fracture Status: Acute Assessment and Plan: Dr. Lombardi - Left IT Nail post op day 1 PRN pain control will order PT/OT post op for d/c planning (2) Early onset Alzheimer's dementia: Code(s): G30.0 - Alzheimer's disease with early onset; F02.80 - Dementia in other diseases classified elsewhere, unspecified severity, without behavioral disturbance, psychotic disturbance, mood disturbance, and anxiety Status: Acute Assessment and Plan: Impulsive and forgetful Fall precautions. continue home meds requiring Ativan and Haldol, restraints ordered for patient safety post code purple this afternoon consider Zyprexa PRN Subjective Date/time seen: 12/16/23 14:36 Interval history: Patient in no acute distress at his baseline this morning on exam. Patient denies complaints or pain on exam. He is eating/drinking. He had a rough night after surgery requiring Haldol, Ativan and restraints. This afternoon a code purple was called as patient became very agitated and uncooperative. 1 mg Ativan and 5 of Haldol given. Will consider PRN Zyprexa. Awaiting completion of EKG ordered. Ortho - Dr. Lombardi repaired yesterday. Will order PT/OT for d/c planning when appropriate. Review of Systems Review of Systems: ROS unobtainable: Yes unobtainable due to mental status Exam Narrative: APPEARANCE: Well appearing, no distress, well-nourished. HEAD: normocephalic, atraumatic. EYES: PERRLA/EOMI NECK: Supple. No adenopathy, no masses. RESPIRATORY: Airway patent, respirations nonlabored. Clear to auscultation bilaterally, no rales, rhonchi, wheezing. CARDIOVASCULAR: RRR without murmurs rubs or gallops. ABDOMINAL: Soft, nontender, nondistended, normal bowel sounds MUSCULOSKELETAL: Neurovascularly intact, left hip tenderness to palpation NEURO: Alert. Cranial nerves II through XII intact. Grossly intact SKIN: Warm, dry. Normal Color. Dressing clean,dry and intact. PSYCH: Difficult, but appropriate. Objective Data Vital Signs Vital Signs: Vital Signs - 24 hr 12/15/23 18:27 12/15/23 18:40 12/15/23 18:55 Temperature 97.7 F Pulse Rate 71 74 75 Respiratory Rate 11 L 8 L 10 L Blood Pressure 88/48 L 93/50 L 105/66 Pulse Oximetry 98 100 100 Oxygen Delivery Simple Face Mask Simple Face Mask Simple Face Mask Oxygen Flow Rate 6 6 6 12/15/23 19:10 12/15/23 19:25 12/15/23 20:00 Temperature Pulse Rate 75 74 Respiratory Rate 10 L 12 Blood Pressure 116/67 110/66 Pulse Oximetry 100 97 Oxygen Delivery Room Air Room Air Room Air Oxygen Flow Rate 12/15/23 21:58 12/15/23 22:00 12/15/23 20:30 Temperature 98.2 F 97.8 F Pulse Rate 135 H 80 85 Respiratory Rate 22 H 17 18 Blood Pressure 124/80 110/64 114/62 Pulse Oximetry 95 92 93 Oxygen Delivery Room Air Oxygen Flow Rate 12/16/23 01:00 12/16/23 03:35 12/16/23 05:00 Temperature Pulse Rate 92 81 74 Respiratory Rate 19 19 19 Blood Pressure 111/54 L 118/62 122/64 Pulse Oximetry 100 100 100 Oxygen Delivery Oxygen Flow Rate 12/16/23 09:05 12/16/23 10:22 12/16/23 10:35 Temperature 98.6 F Pulse Rate 50 L Respiratory Rate 22 H Blood Pressure 105/64 Pulse Oximetry 97 Oxygen Delivery Room Air Room Air Oxygen Flow Rate 12/16/23 08:00 Temperature Pulse Rate 82 Respiratory Rate Blood Pressure Pulse Oximetry 95 Oxygen Delivery Room Air Oxygen Flow Rate Intake/Output Intake/Output: Intake & Output 12/13/23 12/14/23 12/15/23 12/16/23 23:59 23:59 23:59 23:59 Int
--- NOTE | 2023-12-16 15:45 | ECG_ITS ---
Measurements Intervals [place] Rate: 84 P: 57 MA: 160 QRS: 33 QRSD: 93 T: 58 QT: 352 QTc: 417 Interpretive Statements SINUS RHYTHM BASELINE ARTIFACT- I, II, III, AVR, AVL, AVF, V3-V5 NORMAL ECG COMPARED TO ECG 12/15/2023 22:27:28 SINUS RHYTHM NOW PRESENT Electronically Signed On 12-16-2023 16:09:49 [employer]UR[employer] H[employer]PITAL[employer] MANAGER by Greg Watson D.O.
[2023-12-16] MEDS: CYCLOBENZAPRINE HCL 10 MG TABLET PO (16:47)
[2023-12-16] MEDS: OLANZapine 10 MG INJ VIAL IM (17:36)
--- NOTE | 2023-12-16 18:51 | PM.PNORT ---
Progress Note: A&P Assessment and Plan (1) Closed hip fracture: Code(s): S72.009A - Fracture of unspecified part of neck of unspecified femur, initial encounter for closed fracture Status: Acute Assessment and Plan: POD 1 DOING WELL. OK TO DC WHEN STABLE PER INTERNAL MEDICINE TEAM. HE SHOULD CONTINUE WBAT. HE SHOULD CONTINUE DVT PROPHYLAXIS X 3 WEEKS POSTOP. HE WILL F/U WITH ORTHO IN 6 WEEKS. (2) Early onset Alzheimer's dementia: Code(s): G30.0 - Alzheimer's disease with early onset; F02.80 - Dementia in other diseases classified elsewhere, unspecified severity, without behavioral disturbance, psychotic disturbance, mood disturbance, and anxiety Status: Acute Subjective Subjective Date/Time Seen: 12/16/23 18:51 Interval history: POD 1 DOING WELL. HE IS VERY CONFUSED TODAY. HE DENIES ANY SEVERE HIP PAIN Exam Extrem: Other: VSS AFEBRILE DRESSING DRY NV INTACT NEG HOMANS SIGN THIGH SOFT WITH MINIMAL TENDERNESS, NEG HOMANS SIGN Objective Data Vital Signs Vital Signs: Vital Signs - 24 hr 12/15/23 18:55 12/15/23 19:10 12/15/23 19:25 Temperature Pulse Rate 75 75 74 Respiratory Rate 10 L 10 L 12 Blood Pressure 105/66 116/67 110/66 Pulse Oximetry 100 100 97 Oxygen Delivery Simple Face Mask Room Air Room Air Oxygen Flow Rate 6 12/15/23 20:00 12/15/23 21:58 12/15/23 22:00 Temperature 36.8 C Pulse Rate 135 H 80 Respiratory Rate 22 H 17 Blood Pressure 124/80 110/64 Pulse Oximetry 95 92 Oxygen Delivery Room Air Room Air Oxygen Flow Rate 12/15/23 20:30 12/16/23 01:00 12/16/23 03:35 Temperature 36.6 C Pulse Rate 85 92 81 Respiratory Rate 18 19 19 Blood Pressure 114/62 111/54 L 118/62 Pulse Oximetry 93 100 100 Oxygen Delivery Oxygen Flow Rate 12/16/23 05:00 12/16/23 09:05 12/16/23 10:22 Temperature 37.0 C Pulse Rate 74 50 L Respiratory Rate 19 22 H Blood Pressure 122/64 105/64 Pulse Oximetry 100 97 Oxygen Delivery Room Air Oxygen Flow Rate 12/16/23 10:35 12/16/23 08:00 Temperature Pulse Rate 82 Respiratory Rate Blood Pressure Pulse Oximetry 95 Oxygen Delivery Room Air Room Air Oxygen Flow Rate Intake/Output Intake/Output: Intake & Output 12/13/23 12/14/23 12/15/23 12/16/23 23:59 23:59 23:59 23:59 Intake Total 490 2350 340 Output Total 200 1110 1400 Balance 290 1240 -1060 Meds/Results Medications: Active Medications Generic Name Dose Route Start Last Admin Trade Name Freq PRN Reason Stop Dose Admin Acetaminophen 650 mg 12/16/23 07:20 12/16/23 10:02 Acetaminophen 325 Mg Tablet PO 650 mg Q6H PRN Administration Mild Pain (1-3) or Fever Hydrocodone Bitart/Acetaminophen 1 tab 12/16/23 07:20 Hydrocodone/Acetaminophen (*Crx) 7.5-325 Mg Tablet PO Q3H PRN Pain Rated 4-6 Hydrocodone Bitart/Acetaminophen 2 tab 12/16/23 07:20 Hydrocodone/Acetaminophen (*Crx) 7.5-325 Mg Tablet PO Q6H PRN Pain Rated 7-10 Aspirin 325 mg 12/16/23 08:00 12/16/23 08:48 Aspirin 325 Mg Enteric Tablet PO 325 mg Q12HR VANDA Administration Cyclobenzaprine HCl 10 mg 12/14/23 23:59 12/16/23 16:47 Cyclobenzaprine Hcl 10 Mg Tablet PO 10 mg Q8H PRN Administration Muscle Spasm Diazepam 5 mg 12/16/23 07:20 Diazepam (*Crx) 5 Mg Tablet PO Q8H PRN Muscle Spasm Donepezil HCl 10 mg 12/14/23 21:00 12/15/23 22:35 Donepezil Hcl 10 Mg Tablet PO Not Given QHS VANDA Famotidine 20 mg 12/16/23 08:00 12/16/23 08:48 Famotidine 20 Mg Tablet PO 20 mg Q12HR VANDA Administration Cefazolin Sodium 2 gm in 50 mls @ 100 mls/hr 12/16/23 07:30 12/16/23 15:43 Ancef 2 Gm/D5w 50 Ml IVPB 12/16/23 23:59 Infused Q8H VANDA Infusion Memantine 10 mg 12/14/23 17:00 12/16/23 16:47 Memantine 10 Mg Tablet PO 10 mg BID VANDA Administration Naloxone HCl 0.1 mg 01/31/24 07:20 Naloxone Hcl 0.4 Mg/Ml Vial IV PUSH Q2M PRN Opi
[2023-12-16] MEDS: QUEtiapine FUMARATE 25 MG TABLET PO (20:57)
[2023-12-16] MEDS: QUEtiapine FUMARATE 25 MG TABLET 50 MG PO (20:57)
[2023-12-16 21:05] VITALS: BP 99/51; PULSE 98; RESP 22; TEMP 37.5; O2SAT 95
[2023-12-16] MEDS: diazePAM (*CRX) 5 MG TABLET PO (22:48)
[2023-12-16] MEDS: DONEPEZIL HCL 10 MG TABLET PO (22:48)
[2023-12-17 05:05] VITALS: BP 98/68; PULSE 90; RESP 18; TEMP 37.1; O2SAT 94
[2023-12-17 07:16] LABS: Basophils Percent Auto 0.2 % (0.2-1.2); Eosinophils Percent Auto 0.1 % (0-4.4); Hematocrit 36.4 % (42.0-52.0); Hemoglobin 11.8 g/dL (14.0-18.0); Immature Granulocyte Absolute 0.07 K/mm3 (0.00-0.031); Immature Granulocyte Percent A 0.5 % (0-0.5); Lymphocytes Absolute Auto 0.96 K/mm3 (0.9-3.2); Mean Corpuscular HGB Conc 32.4 g/dl (32-36); Mean Corpuscular Hemoglobin 29.7 pg (26-34); Mean Corpuscular Volume 91.7 fl (80-100); Mean Platelet Volume 10.1 fl (7.4-10.4); Monocytes Absolute Auto 1.5 K/mm3 (0.1-0.6); Monocytes Percent Auto 10.9 % (2.6-8.5); Neutrophils Absolute Auto 11.1 K/mm3 (1.3-6.7); Neutrophils Percent Auto 81.3 % (45.5-73.1); Platelet Count Result 252 k/mm3 (150-375); Red Blood Count 3.97 M/mm3 (4.6-6.20); White Blood Count 13.7 K/mm3 (4.5-10.0)
[2023-12-17 07:27] LABS: Alanine Aminotransferase 35 U/L (6-50); Albumin Level 3.3 g/dL (3.5-5.1); Alkaline Phosphatase 88 U/L (38-126); Anion Gap 6 mmol/L (8-16); Aspartate Amino Transferase 103 U/L (17-59); Bilirubin,Total 1.6 mg/dL (0.2-1.3); Blood Urea Nitrogen 16 mg/dL (9-20); Calcium 8.6 mg/dL (8.4-10.2); Carbon Dioxide 26 mmol/L (22-30); Chloride 105 mmol/L (98-107); Estimated CRCL calculation 90 ml/min; Estimated Glomerular Filt Rate > 60; Glucose 107 mg/dL (65-110); Magnesium 2.3 mg/dL (1.6-2.3); Potassium 3.9 mmol/L (3.4-5.0); Sodium 137 mmol/L (137-145)
[2023-12-17 09:05] VITALS: BP 94/56; PULSE 94; RESP 18; TEMP 37.6; O2SAT 95
--- NOTE | 2023-12-17 09:30 | PM.PNORT ---
Progress Note: A&P Assessment and Plan (1) Intertrochanteric fracture: Qualifiers: Encounter type: initial encounter Fracture type: closed Fracture alignment: displaced Laterality: left Qualified Code(s): S72.142A - Displaced intertrochanteric fracture of left femur, initial encounter for closed fracture Code(s): S72.143A - Displaced intertrochanteric fracture of unspecified femur, initial encounter for closed fracture Status: Acute Assessment and Plan: POD #2: INSERTION INTRAMEDULLARY ADRIANNA LEFT HIP Continue PT/OT. WBAT. TTWB LLE. HIGH FALL RISK. Continue pain control. Ice Hip. Protect skin. DVT prophylaxis with Aspirin. SCDs. Incentive Spirometry Use reviewed. Monitor Dressing. Bowel Regimen. Dispo: Home with Home Health/Supervision by Family pending progress with PT/OT (2) Early onset Alzheimer's dementia: Code(s): G30.0 - Alzheimer's disease with early onset; F02.80 - Dementia in other diseases classified elsewhere, unspecified severity, without behavioral disturbance, psychotic disturbance, mood disturbance, and anxiety Status: Acute Plan Reviewed history, exam, radiographs and current labs with attending MD and covering surgeon, Dr. Hines, who agrees with current plan as indicated above. No further recommendations from Dr. Hines at this time. Subjective Subjective Date/Time Seen: 12/17/23 09:30 Post Op day: 2 Interval history: POD #2: INSERTION INTRAMEDULLARY ADRIANNA LEFT HIP Patient alert/awake. Confused, not agitated. Improved from yesterday/overnight. No longer in restraints. Patient sitter at bedside assisting with meals. Review of Systems Review of Systems: ROS unobtainable: Yes unobtainable due to mental status Exam Const: General: comfortable and no acute distress Resp: Effort & Inspection: normal respiratory effort Cardio: Rate: regular rate Rhythm: regular rhythm GI: Inspection: non-distended Skin: General skin exam: normal color and wounds noted (incision left hip C/D/I ) Wounds: wounds noted (incision left hip C/D/I ) Extrem: Left lower extremity: hip/thigh Details: tenderness Location: of the hip Location: laterally and anteriorly, swelling (thigh soft ) Location: of the hip (lateral. ), abnormal ROM (limitations with internal/external rotation and flexion/extension due to recent surgical intervention ) and other (incision lateral hip c/d/i. ), knee Details: normal to inspection and normal ROM; no tenderness and no swelling, lower leg (Negative Alphonso's Sign ) Details: no edema, ankle (+ankle dorsiflexion/plantarflexion ) Details: normal to inspection, no edema and normal ROM; no tenderness, no swelling and no warmth and foot Details: normal capillary refill, toes with normal ROM, vascular exam Details: dorsalis pedis pulse present and motor-sensory exam light-touch normal in all toes; no tenderness, no ecchymosis and no crepitus Objective Data Vital Signs Vital Signs: Vital Signs - 24 hr 12/16/23 10:22 12/16/23 10:35 12/16/23 21:05 Temperature 37.5 C Pulse Rate 98 Respiratory Rate 22 H Blood Pressure 99/51 L Pulse Oximetry 95 Oxygen Delivery Room Air Room Air 12/16/23 20:00 12/17/23 05:05 Temperature 37.1 C Pulse Rate 90 Respiratory Rate 18 Blood Pressure 98/68 L Pulse Oximetry 94 Oxygen Delivery Room Air Intake/Output Intake/Output: Intake & Output 12/14/23 12/15/23 12/16/23 12/17/23 23:59 23:59 23:59 23:59 Intake Total 490 2350 340 Output Total 200 1110 1400 1100 Balance 290 1240 -1060 -1100 Meds/Results Medications: Active Medications Generic Name Dose Route Start Last Admin Trade Name Freq PRN Reason Stop Dose Admin Acetaminophen 650 mg 12/16/23 07:20 12/16/23 10:02 Acetaminophen 325 Mg Tablet PO 650 mg Q6H PRN Administration Mild Pain (1-3) or Fever Hydrocodone Bitart/Acetaminophen 1 tab 12/16/23 07:20 Hydrocodone/Acetaminophen (*Crx) 7.5-325 Mg Tablet PO
[2023-12-17] MEDS: polyethylene glycoL 3350 17 GM POWD.PACK PO (09:40)
[2023-12-17] MEDS: MEMANTINE 10 MG TABLET PO ×2 (09:40→16:40)
[2023-12-17] MEDS: FAMOTIDINE 20 MG TABLET PO (09:40)
[2023-12-17] MEDS: SERTRALINE HCL 50 MG TABLET PO (09:40)
[2023-12-17] MEDS: SENNA/DOCUSATE SODIUM TABLET 2 TAB PO ×2 (09:40→16:40)
[2023-12-17] MEDS: ASPIRIN 325 MG ENTERIC TABLET PO (09:40)
[2023-12-17 09:45] VITALS: O2SAT 97
--- NOTE | 2023-12-17 10:20 | PCOTNOTE ---
Per RN, Jael hernandez called this A.M. Patient is in restraints, not to be seen for services. RN verbalized Patient will be discharged home with his this date.
--- NOTE | 2023-12-17 10:22 | PCPTNOTE ---
Patient resting in bed with sitter and significant other present. Patient opens eyes and responds to verbal stimuli. Patient does not follow through with attempts to perform bed mobility and participate in therapy. PT will continue to follow per plan of care.
[2023-12-17] MEDS: LORazepam INJ (*CRX) 2 MG/ML VIAL 1 MG IV PUSH (10:50)
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
--- NOTE | 2023-12-17 12:03 | PM.DS ---
DS: Admitting Diagnosis Discharge Date 12/17/23 Admitting Diagnosis closed left hip fracture DS: Discharge Diagnosis Discharge Diagnosis (1) Intertrochanteric fracture: Qualifiers: Encounter type: initial encounter Fracture alignment: displaced Fracture type: closed Laterality: left Qualified Code(s): S72.142A - Displaced intertrochanteric fracture of left femur, initial encounter for closed fracture Code(s): S72.143A - Displaced intertrochanteric fracture of unspecified femur, initial encounter for closed fracture Status: Acute Assessment and Plan: Dr. Lombardi - Left IT Nail post op day 2; cleared by ortho for d/c home with HH PRN pain control (2) Early onset Alzheimer's dementia: Code(s): G30.0 - Alzheimer's disease with early onset; F02.80 - Dementia in other diseases classified elsewhere, unspecified severity, without behavioral disturbance, psychotic disturbance, mood disturbance, and anxiety Status: Acute Assessment and Plan: Impulsive and forgetful Fall precautions. continue home meds DS: Summary Hospital Course Hospital Course: Patient is a 63 YO male with advanced early-onset dementia and depression admitted for an unwitnessed fall at home resulting in a left hip fracture. Orthopedics was consulted and he underwent operative repair on 12/15. He lives with significant other and his sisters. Patient has very poor memory especially short-term. He has been very agitated at times, especially overnight resulting in Ativan, Haldol and Zyprexa given PRN. Restraints had to be order with sitter. Patient has been cleared by ortho and is medically stable for d/c. D/C plan reviewed with family with CC and they feel they can take him home with the support of for PT. Will send with aspirin for DVT prophylaxis and patient to follow up with ortho in 5 weeks. Status at Discharge Functional status at discharge: wheelchair bound Overall status at discharge: patient is not back to baseline Time Spent with Patient Time attestation: Total time spent providing and/or coordinating discharge services: Exam Narrative: APPEARANCE: Well appearing, no distress, well-nourished. HEAD: normocephalic, atraumatic. EYES: PERRLA/EOMI NECK: Supple. No adenopathy, no masses. RESPIRATORY: Airway patent, respirations nonlabored. Clear to auscultation bilaterally, no rales, rhonchi, wheezing. CARDIOVASCULAR: RRR without murmurs rubs or gallops. ABDOMINAL: Soft, nontender, nondistended, normal bowel sounds MUSCULOSKELETAL: Neurovascularly intact, left hip tenderness to palpation NEURO: Alert. Cranial nerves II through XII intact. Grossly intact SKIN: Warm, dry. Normal Color. Dressing clean,dry and intact. PSYCH: Difficult, but appropriate. DS: Data Data Completed and Pending Labs on day of discharge: Labs from last 24 hours 12/17/23 06:58 WBC 13.7 H RBC 3.97 L Hgb 11.8 L Hct 36.4 L MCV 91.7 MCH 29.7 MCHC 32.4 RDW 13.0 Plt Count 252 MPV 10.1 Immature Gran % (Auto) 0.5 Neut % (Auto) 81.3 H Lymph % (Auto) 7.0 L [place] % (Auto) 10.9 H Eos % (Auto) 0.1 Baso % (Auto) 0.2 Lymph # (Auto) 0.96 [place] # (Auto) 1.5 H Eos # (Auto) 0.0 Baso # (Auto) 0.0 Abs Immat Gran (auto) 0.07 H Absolute Neuts (auto) 11.1 H Absolute Nucleated RBC 0.0 Nucleated RBC % 0.0 Sodium 137 Potassium 3.9 Chloride 105 Carbon Dioxide 26 Anion Gap 6 L BUN 16 Creatinine 0.80 Estim Creat Clear Calc 90 Estimated GFR > 60 Glucose 107 Calcium 8.6 Magnesium 2.3 Total Bilirubin 1.6 H AST 103 H ALT 35 Alkaline Phosphatase 88 Total Protein 6.0 L Albumin 3.3 L Discharge Plan Discharge Attending physician on discharge: Nino Pimentel Consulting providers: Branden Hines Discharging Clinician: Aishwarya Morfin Anticipated Discharge Date/Time: 12/17/23 08:27 Patient Disposition: Home Health Service Activity: follow weight bearing status
[2023-12-17] MEDS: TAMSULOSIN HCL 0.4 MG CAPSULE PO (16:40)
--- NOTE | 2023-12-17 17:48 | PC.NURSE ---
Patient was able to void small amount in urinal missed urinal with rest of urine, bladder scanned post void showed 300ml. Patient will discharge with flomax educated on s/s of further retention issues
== END 2023-12-17 18:22 | disposition home health service (06) | DRG 308 ==
LOC: ANHED 10:03 → ANH3MEDSUR 10:45
PROVIDERS: Nurse Practitioner; Orthopaedic Surgery; Admitting Provider General Practice; Emergency Provider Emergency Medicine; PCP Family Medicine Adolescent Medicine; Visit Provider Nurse Practitioner
PROC: 0QS736Z Reposition Left Upper Femur with Intramedullary Internal Fixation Device, Percutaneous Approach (ICD-10-PCS; CPT 27245; principal; 2023-12-15 17:00)
DX: S72.142A Displaced intertrochanteric fracture of left femur, initial encounter for closed fracture (principal); G30.0 Alzheimer's disease with early onset; F02.80 Dementia in other diseases classified elsewhere, unspecified severity, without behavioral disturbance, psychotic disturbance, mood disturbance, and anxiety; F32.A Depression, unspecified; F17.210 Nicotine dependence, cigarettes, uncomplicated; W18.30XA Fall on same level, unspecified, initial encounter
CPT/HCPCS: 36415; 70450; 71045; 73502; 80053; 81001; 83735; 85025; 85610; 85730; 86850; 86900; 86901; 93005; 96374; 96375; 97161; 97165; 99199; 99285; A9270; C1713; G0378; G0379; J0690; J1100; J1170; J1200; J1630; J2060; J2359; J2405; J2704; J3010; J7030; J7120

== ENCOUNTER 2023-12-21 07:57 | Inpatient (IN) | payer OTHER, SELFPAY ==
--- NOTE | ~2023-12-21 | US_ITS ---
EXAMINATION: US abdomen limited DATE: 12/22/2023 08:17 INDICATION: Abnormal liver function tests. TECHNIQUE: Multiple grayscale and Doppler ultrasound images of the abdomen were obtained. COMPARISON: None FINDINGS: The visualized portions of the head and body of the pancreas are normal. The liver is dano l without focal lesion. There is normal flow in main portal vein. The gallbladder is normal in size. No gallstones or gallbladder wall thickening. There is no sonographic Puente sign. The common duct is normal and measures 5 mm. IMPRESSION: 1. Normal right upper quadrant ultrasound. Reviewed, dictated and finalized at location A. DREN'S MINISTER
--- NOTE | ~2023-12-21 | CT_ITS ---
EXAMINATION: CT brain wo con DATE: 12/21/2023 08:35 INDICATION: Dementia. Altered mental status. TECHNIQUE: Computed tomography (CT) of the head was performed without intravenous contrast. The mA wa s adjusted according to patient size. Iterative reconstruction technique was employed. The dose-lengt h product was 605.33 mGy-cm. COMPARISON: Head CT 12/14/2023, brain MRI 12/23/2022 FINDINGS: There is an old infarct in left cerebellum. There are scattered areas of low attenuation in the cerebral white matter. There is no intracranial hemorrhage, acute infarction, or abnormal intrac ranial mass lesion. The ventricles are normal in size. The orbits are normal. The paranasal sinuses a re clear. The mastoid air cells are normal. IMPRESSION: 1. 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 2. Mild nonspecific cerebral white matter disease, which likely represents chronic small vessel ische mike disease. Reviewed, dictated and finalized at location E. ER HEAD ASSISTANT WET PROCESS IMPRESSION: 1. 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 2. Mild nonspecific cerebral white matter disease, which likely represents sales correspondent divina small vessel ischemic disease.
--- NOTE | ~2023-12-21 | XR_ITS ---
EXAMINATION: XR chest 1V portable DATE: 12/30/2023 14:31 INDICATION: Confusion TECHNIQUE: frontal view of the chest was obtained. COMPARISON: Chest radiograph dated 12/14/2023 FINDINGS: The lungs remain clear with no focal airspace opacities, pulmonary edema, pleural effusion or pneumot horax. The cardiomediastinal silhouette is normal. Calcified splenic nodules consistent with old gran ulomatous disease. IMPRESSION: 1. No acute cardiopulmonary disease. Reviewed, dictated and finalized at location A. BOLIC SPECIALIST
--- NOTE | ~2023-12-21 | XR_ITS ---
XR hip LT 2V w AP pelvis DATE: 01/01/2024 14:48 INDICATION: 2 weeks postoperative patient TECHNIQUE: AP pelvis. AP and lateral views of left hip. COMPARISON: 12/14/2023 left hip FINDINGS: Antegrade nail and screw compression screw extending into the femoral head, providing near- anatomic position and alignment of the major proximal and distal fragments of the comminuted intertro chanteric fracture of the left femur. Osteopenia. Normal alignment at the pubic symphysis and sacroiliac joints. No evidence of hip dislocation. IMPRESSION: Status post ORIF left hip Reviewed, dictated and finalized at location B. CIATE PROFESSOR PHYSICIAN IMPRESSION: Status post ORIF left hip
--- NOTE | ~2023-12-21 | XR_ITS ---
EXAMINATION: XR abdomen obstructive series DATE: 12/30/2023 14:31 INDICATION: Abdominal pain. TECHNIQUE: Upright and supine views of the abdomen on 3 radiographs were obtained. COMPARISON: Pelvis radiograph 12/14/2023 FINDINGS: There are no dilated loops of bowel. There is a moderate volume of stool in the colon. No f ree intraperitoneal gas. There is internal fixation of left femur. There are stones in the bladder. IMPRESSION: 1. Bladder stones. Reviewed, dictated and finalized at location A. RT/EXPORT FREIGHT FORWARDER IMPRESSION: 1. Bladder stones.
[2023-12-21 08:01] VITALS: BP 121/88; PULSE 89; RESP 20; TEMP 36.5; O2SAT 99
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
[2023-12-21 08:35] LABS: Basophils Percent Auto 0.3 % (0.2-1.2); Eosinophils Percent Auto 0.2 % (0-4.4); Hematocrit 39.1 % (42.0-52.0); Hemoglobin 12.3 g/dL (14.0-18.0); Immature Granulocyte Absolute 0.09 K/mm3 (0.00-0.031); Immature Granulocyte Percent A 0.6 % (0-0.5); Lymphocytes Absolute Auto 1.08 K/mm3 (0.9-3.2); Lymphocytes Percent Auto 7.1 % (18.3-44.2); Mean Corpuscular HGB Conc 31.5 g/dl (32-36); Mean Corpuscular Hemoglobin 29.1 pg (26-34); Mean Corpuscular Volume 92.4 fl (80-100); Mean Platelet Volume 9.8 fl (7.4-10.4); Monocytes Absolute Auto 1.2 K/mm3 (0.1-0.6); Neutrophils Absolute Auto 12.7 K/mm3 (1.3-6.7); Neutrophils Percent Auto 83.8 % (45.5-73.1); Platelet Count Result 441 k/mm3 (150-375); Red Blood Count 4.23 M/mm3 (4.6-6.20); Red Cell Distribution Width 13.2 % (11.5-14.5); White Blood Count 15.2 K/mm3 (4.5-10.0)
[2023-12-21 08:42] LABS: INR 1.1
[2023-12-21 08:43] LABS: Alanine Aminotransferase 73 U/L (6-50); Albumin Level 3.6 g/dL (3.5-5.1); Alkaline Phosphatase 144 U/L (38-126); Anion Gap 5 mmol/L (8-16); Aspartate Amino Transferase 70 U/L (17-59); Bilirubin,Total 1.4 mg/dL (0.2-1.3); Blood Urea Nitrogen 22 mg/dL (9-20); Calcium 9.7 mg/dL (8.4-10.2); Carbon Dioxide 28 mmol/L (22-30); Chloride 105 mmol/L (98-107); Estimated CRCL calculation 82 ml/min; Estimated Glomerular Filt Rate > 60; Glucose 115 mg/dL (65-110); Potassium 4.4 mmol/L (3.4-5.0); Sodium 138 mmol/L (137-145)
[2023-12-21 08:44] VITALS: RESP 17; O2SAT 96
[2023-12-21 08:57] LABS: Appearance Urine Clear (Clear); Bacteria Urine None Seen /hpf; Bilirubin Urine Negative (Negative); Color Urine Dark Yellow (Yellow); Glucose Urine UA Negative (Negative); Ketones Urine Negative (Negative); Leukocyte Esterase Ur 1+ LEU/UL (Negative); Need Manual Microscopic Reviewed; Nitrate Urine Negative (Negative); Non Pathogenic Casts 0-2; Protein Urine Trace mg/dL (Negative); Squamous Epithelial Cell Urine None seen /hpf (Few)
[2023-12-21 08:59] LABS: Add Urine Microscopic? YES
[2023-12-21 09:09] LABS: Influenza A QL RT-PCR Negative (Negative); Influenza B QL RT-PCR Negative (Negative); RSV RNA, RT-PCR Negative (Negative); SARS-CoV-2 RNA PCR Negative (Negative)
[2023-12-21] MEDS: HALOPERIDOL LACTATE 5 MG/ML VIAL IM (10:44)
[2023-12-21] MEDS: LORazepam INJ (*CRX) 2 MG/ML VIAL (10:44)
--- NOTE | 2023-12-21 10:44 | PC.NURSE ---
Pt very agitated AND CONFUSE , WANTS TO LEAVE, GOT UP WALKING with unsteady gait. Security called, EDP present verbal order received for 2mg IV push Lorazepam. Pt back in bed, soft restrains on to both upper extremities, drink offered.
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
[2023-12-21 14:19] VITALS: BP 99/64; PULSE 71; RESP 19; O2SAT 96
[2023-12-21] MEDS: cefTRIAXone 2 GM/NS 100 ML 2 GM/100 ML BAG IVPB (14:26)
[2023-12-21] MEDS: DEXTROSE 5%/0.9% SOD CHL 1,000 ML 125 ML IV CONT (15:08)
[2023-12-21 15:15] LABS: Lactic Acid Reflex 0.8 mmol/L (0.7-2.0)
[2023-12-21 15:48] VITALS: BP 105/64; PULSE 69; RESP 20; O2SAT 100
--- NOTE | 2023-12-21 16:30 | PCCCNOTE ---
CC called to ED this AM for half-way placement for this pt., family is unable to care for him at home any longer due to his combative behavior. I spoke with his sister, Kayleigh Berry ([phone]), who is also his POA. She was offered her preference on half-way facilities, she choose [facility], [facility], and [facility]. Referrals were sent to all of these facilities. [facility] denied the pt. [facility] is pending. I [facility] at [facility]. Pt is admitted in observation for placement at this time. I spoke to Kayleigh this evening, she is open to other nursing homes if a different one will take him.
[2023-12-21 16:31] VITALS: BMI 23.9
[2023-12-21] MEDS: OLANZapine 10 MG INJ VIAL 5 MG IM (20:16)
[2023-12-21 22:00] VITALS: BP 99/69; PULSE 66; RESP 18; TEMP 36.6; O2SAT 95
[2023-12-22] MEDS: OLANZapine 10 MG, WATER, STERILE FOR INJECTION 2.1 ML IM ×2 (02:36→04:20)
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
[2023-12-22] MEDS: HALOPERIDOL LACTATE 5 MG/ML VIAL 10 MG IM (05:49)
[2023-12-22] MEDS: ENOXAPARIN 40 MG/0.4 ML SYRINGE SUB-Q (09:20)
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
[2023-12-22 12:19] LABS: Glucose Point of Care 104 mg/dl (65-105)
[2023-12-22 12:36] LABS: Bilirubin Indirect 0.9 mg/dL (0-1.1)
[2023-12-22 12:44] LABS: Hepatitis B Surface Antigen Negative (Negative)
[2023-12-22 12:50] LABS: HAV RESULT Negative (Negative); Hepatitis B Core IgM Result Negative (Negative)
[2023-12-22 13:02] LABS: Hepatitis C Virus Antibody Negative (Negative)
[2023-12-22 13:06] LABS: HIV 1/2 Ab P24 Ag Result Negative (Negative)
[2023-12-22 13:12] VITALS: BP 102/57; PULSE 76; RESP 16; TEMP 37.1; O2SAT 94
[2023-12-22 13:37] LABS: Folic Acid 10.5 ng/mL (2.76->20)
[2023-12-22 13:57] LABS: Amphetamine Screen Urine Negative (Negative); Barbiturate Screen Urine Negative (Negative); Benzodiazepines Screen Urine Negative (Negative); Cannabinoid Screen Urine Negative (Negative); Cocaine Screen Urine Negative (Negative); Methadone Screen Urine Negative (Negative); Opiate Screen Urine Negative (Negative); Phencyclidine Screen Urine Negative (Negative)
[2023-12-22] MEDS: SERTRALINE HCL 50 MG TABLET PO (14:01)
[2023-12-22] MEDS: MEMANTINE 10 MG TABLET PO (14:01)
[2023-12-22] MEDS: TAMSULOSIN HCL 0.4 MG CAPSULE PO (14:01)
[2023-12-22] MEDS: cefTRIAXone 2 GM/NS 100 ML 2 GM/100 ML BAG IVPB (15:04)
[2023-12-22 16:00] VITALS: PULSE 74
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
[2023-12-22 17:04] LABS: Rapid Plasma Reagin Non-Reactive (NonReactive)
[2023-12-22] MEDS: LORazepam INJ (*CRX) 2 MG/ML VIAL 0.5 MG IV PUSH (17:15)
[2023-12-22] MEDS: OLANZapine 5 MG, WATER, STERILE FOR INJECTION 2.1 ML IM ×2 (17:20→18:41)
[2023-12-22] MEDS: LORazepam INJ (*CRX) 2 MG/ML VIAL 1 MG IV PUSH (17:36)
--- NOTE | 2023-12-22 19:19 | PM.EVENT ---
Event Note Event Note Event Note: Cross coverage Code purple called on patient around 17:00. Patient combative. Given 5 mg of olanzapine and 0.5 mg of Ativan. Additional 1 mg IV of Ativan ordered p.r.n. and administered 30 minutes post olanzapine/Ativan administration. Patient continuing to fight staff and pull out of soft restraints. Additional 5 mg of olanzapine given. Patient not having adequate response to medications, decreased agitation and combativeness. Continue to monitor closely.
[2023-12-22 20:00] VITALS: PULSE 75
[2023-12-22 20:59] LABS: Vitamin D 25 Hydroxy 17.2 ng/mL
--- NOTE | 2023-12-22 21:23 | PC.NURSE ---
[facility] called and stated that they are unable to accept patient at this time.
[2023-12-22 22:00] VITALS: BP 131/58; PULSE 74; RESP 18; TEMP 36.7; O2SAT 94
[2023-12-23] VITALS (7 sets, daily range): BP systolic 111–112; BP diastolic 55–64; PULSE 71–78; RESP 18; TEMP 36.7–36.8; O2SAT 91–96
[2023-12-23 00:36] LABS: Glucose Point of Care 108 mg/dl (65-105)
[2023-12-23] MEDS: DONEPEZIL HCL 5 MG TABLET PO ×2 (02:00→19:47)
[2023-12-23] MEDS: MEMANTINE 10 MG TABLET PO ×2 (02:00→19:47)
[2023-12-23] MEDS: risperiDONE 0.25 MG TABLET 0.5 MG PO ×2 (02:00→19:46)
[2023-12-23 08:12] LABS: Cholesterol 147 mg/dL (0-200); HDL Direct 25 mg/dL; Triglycerides 96 mg/dL (<150)
[2023-12-23 08:23] LABS: LDL Cholesterol Direct 97 mg/dL
[2023-12-23] MEDS: ACETAMINOPHEN 325 MG TABLET 650 MG PO (09:00)
[2023-12-23] MEDS: SERTRALINE HCL 50 MG TABLET PO (09:00)
[2023-12-23] MEDS: TAMSULOSIN HCL 0.4 MG CAPSULE PO (09:00)
[2023-12-23] MEDS: ENOXAPARIN 40 MG/0.4 ML SYRINGE SUB-Q (09:00)
[2023-12-23 09:08] LABS: Glucose Point of Care 111 mg/dl (65-105)
--- NOTE | 2023-12-23 12:17 | P.PNIM_ITS ---
Progress Note: A&P Assessment and Plan (1) Acute metabolic encephalopathy: Code(s): G93.41 - Metabolic encephalopathy Status: Acute (2) Early onset Alzheimer's dementia: Code(s): G30.0 - Alzheimer's disease with early onset; F02.80 - Dementia in other diseases classified elsewhere, unspecified severity, without behavioral disturbance, psychotic disturbance, mood disturbance, and anxiety Status: Acute (3) UTI (urinary tract infection): Code(s): N39.0 - Urinary tract infection, site not specified Status: Acute (4) Intertrochanteric fracture: Qualifiers: Encounter type: initial encounter Fracture alignment: displaced Fracture type: closed Laterality: left Qualified Code(s): S72.142A - Displaced intertrochanteric fracture of left femur, initial encounter for closed fracture Code(s): S72.143A - Displaced intertrochanteric fracture of unspecified femur, initial encounter for closed fracture Status: Acute (5) Elevated LFTs: Code(s): R79.89 - Other specified abnormal findings of blood chemistry Status: Acute Plan Metabolic encephalopathy * History of dementia, worsened mental status, CT head show previous infarct no acute issues, maybe secondary to post-op delirium/anesthesia * History of aggressive/cassidy behavior resumed home medication * Psychiatry following adjusted psych medications * added Seroquel nightly * sitter at bedside * soft restraints remove when no longer medical harm to self * Neuro check q4 hours * Fall precaution * UDS, HIV, RPR, GGT and hepatic Negative Alzheimer dementia * Patient on Aricept and memantine for Alzheimer's dementia.? * Patient's behaviors are worsening and he has become very violent at home.? * Discussed case with our on-call psychiatrist and they are recommending transfer to geriatric psych.. * Phone number for [facility] [phone]/Refused transfer * will continue to adjust psych medications UTI * Initial UA negative for UTI * F/U UTI pending * ceftriaxone IV will de-escalate pending culture Displaced intertrochanteric fracture of unspecified femur, initial encounter for closed fracture * Patient recently hospitalized due to left hip fracture and had insertion of intramedullary sarah on 12/15/2023 * Patient on aspirin for anticoagulation therapy.? * Patient does need PT and OT but due to his behaviors this has become difficult/Will order when patient is better controlled and able to follow commands. Elevated LFTs: * patient found to have elevated bilirubin of 1.4, AST 70, ALT 73, alk-phos 1 44.? * Abdominal ultrasound normal * Hepatitis panel pending * GGT ordered/Pending * No history of alcohol or substance abuse Code status: Full code per patient DVT prophylaxis: SCD's Stress ulcer prophylaxis: Protonix 40 daily PT/OT notes: PT/OT Pending Disposition: Will need placement to SNF at discharge will attempt transfer to a geriatric Psych. -Patient's previous records reviewed on admission -ER notes reviewed in detail on admission -discussed all findings and current treatment plan with patient/Family/POA -Consultations reviewed for recommendations -Patient's disposition for safe discharge discussed with bottle caser Dictation performed by [employer] direct speech recognition software, therefore wheel press clerk variants and typographical errors may occur. Time Spent With Patient Time with patient: 25 - 35 minutes Subjective Date/time seen:
--- NOTE | 2023-12-23 12:17 | PM.IMPN ---
Progress Note: A&P Assessment and Plan (1) Acute metabolic encephalopathy: Code(s): G93.41 - Metabolic encephalopathy Status: Acute (2) Early onset Alzheimer's dementia: Code(s): G30.0 - Alzheimer's disease with early onset; F02.80 - Dementia in other diseases classified elsewhere, unspecified severity, without behavioral disturbance, psychotic disturbance, mood disturbance, and anxiety Status: Acute (3) UTI (urinary tract infection): Code(s): N39.0 - Urinary tract infection, site not specified Status: Acute (4) Intertrochanteric fracture: Qualifiers: Encounter type: initial encounter Fracture alignment: displaced Fracture type: closed Laterality: left Qualified Code(s): S72.142A - Displaced intertrochanteric fracture of left femur, initial encounter for closed fracture Code(s): S72.143A - Displaced intertrochanteric fracture of unspecified femur, initial encounter for closed fracture Status: Acute (5) Elevated LFTs: Code(s): R79.89 - Other specified abnormal findings of blood chemistry Status: Acute Plan Metabolic encephalopathy History of dementia, worsened mental status, CT head show previous infarct no acute issues, maybe secondary to post-op delirium/anesthesia History of aggressive/cassidy behavior resumed home medication Psychiatry following adjusted psych medications added Seroquel nightly sitter at bedside soft restraints remove when no longer medical harm to self Neuro check q4 hours Fall precaution UDS, HIV, RPR, GGT and hepatic Negative Alzheimer dementia Patient on Aricept and memantine for Alzheimer's dementia.? Patient's behaviors are worsening and he has become very violent at home.? Discussed case with our on-call psychiatrist and they are recommending transfer to geriatric psych.. Phone number for [facility] transfer [phone]/Refused transfer will continue to adjust psych medications UTI Initial UA negative for UTI F/U UTI pending ceftriaxone IV will de-escalate pending culture Displaced intertrochanteric fracture of unspecified femur, initial encounter for closed fracture Patient recently hospitalized due to left hip fracture and had insertion of intramedullary sarah on 12/15/2023 Patient on aspirin for anticoagulation therapy.? Patient does need PT and OT but due to his behaviors this has become difficult/Will order when patient is better controlled and able to follow commands. Elevated LFTs: patient found to have elevated bilirubin of 1.4, AST 70, ALT 73, alk-phos 144.? Abdominal ultrasound normal Hepatitis panel pending GGT ordered/Pending No history of alcohol or substance abuse Code status: Full code per patient DVT prophylaxis: SCD's Stress ulcer prophylaxis: Protonix 40 daily PT/OT notes: PT/OT Pending Disposition: Will need placement to SNF at discharge will attempt transfer to a geriatric Psych. -Patient's previous records reviewed on admission -ER notes reviewed in detail on admission -discussed all findings and current treatment plan with patient/Family/POA -Consultations reviewed for recommendations -Patient's disposition for safe discharge discussed with piano case maker Dictation performed by [employer] direct speech recognition software, therefore account solutions analyst variants and typographical errors may occur. Time Spent With Patient Time with patient: 25 - 35 minutes Subjective Date/time seen: 12/23/23 12:17 Interval history: 63-year-old male with history of hypertension, dementia, BPH, anxiety, brought to ED because of altered mental status. ? Patient was seen in the hospital last week for a fall resulting in a fracture of his left hip.? Patient was discharged back to home on December 17.? Patient's family noticed patient has worsening mental status since yesterday, patient has diagnosed early dementia.? And patient was also agitated yesterday,
[2023-12-23 12:58] LABS: Glucose Point of Care 70 mg/dl (65-105)
[2023-12-23] MEDS: LORazepam INJ (*CRX) 2 MG/ML VIAL 0.5 MG IV PUSH ×2 (14:49→22:20)
[2023-12-23] MEDS: cefTRIAXone 2 GM/NS 100 ML 2 GM/100 ML BAG IVPB (15:15)
[2023-12-23] MEDS: OLANZapine 10 MG INJ VIAL IM (16:38)
[2023-12-23 17:26] LABS: Glucose Point of Care 112 mg/dl (65-105)
[2023-12-23] MEDS: WATER, STERILE FOR INJECTION 10 ML VIAL XX (17:45)
[2023-12-23] MEDS: QUEtiapine FUMARATE XR 50 MG TAB.ER.24H PO (19:46)
[2023-12-23] MEDS: OLANZapine 5 MG, WATER, STERILE FOR INJECTION 2.1 ML IM (21:36)
--- NOTE | 2023-12-23 22:09 | PC.NURSE ---
pt acting erotically and crawling out of bed and yelling at staff, security called to calm pt
[2023-12-24 05:52] VITALS: BP 104/68; PULSE 60; RESP 16; TEMP 37.2; O2SAT 97
[2023-12-24 06:00] LABS: Glucose Point of Care 116 mg/dl (65-105)
[2023-12-24 06:07] LABS: Hematocrit 39.3 % (42.0-52.0); Hemoglobin 12.3 g/dL (14.0-18.0); Mean Corpuscular HGB Conc 31.3 g/dl (32-36); Mean Corpuscular Hemoglobin 29.4 pg (26-34); Mean Corpuscular Volume 93.8 fl (80-100); Mean Platelet Volume 9.7 fl (7.4-10.4); Platelet Count Result 490 k/mm3 (150-375); Red Blood Count 4.19 M/mm3 (4.6-6.20); Red Cell Distribution Width 13.2 % (11.5-14.5); White Blood Count 10.7 K/mm3 (4.5-10.0)
[2023-12-24 06:22] LABS: Alanine Aminotransferase 58 U/L (6-50); Albumin Level 3.4 g/dL (3.5-5.1); Alkaline Phosphatase 166 U/L (38-126); Anion Gap 4 mmol/L (8-16); Aspartate Amino Transferase 52 U/L (17-59); Bilirubin,Total 1.1 mg/dL (0.2-1.3); Blood Urea Nitrogen 24 mg/dL (9-20); Carbon Dioxide 31 mmol/L (22-30); Chloride 104 mmol/L (98-107); Estimated CRCL calculation 82 ml/min; Estimated Glomerular Filt Rate > 60; Glucose 104 mg/dL (65-110); Potassium 4.1 mmol/L (3.4-5.0); Sodium 139 mmol/L (137-145)
[2023-12-24] MEDS: SERTRALINE HCL 50 MG TABLET PO (08:21)
[2023-12-24] MEDS: ENOXAPARIN 40 MG/0.4 ML SYRINGE SUB-Q (08:21)
[2023-12-24] MEDS: TAMSULOSIN HCL 0.4 MG CAPSULE PO (08:21)
[2023-12-24] MEDS: MEMANTINE 10 MG TABLET PO ×2 (08:21→21:52)
--- NOTE | 2023-12-24 10:45 | P.PNIM_ITS ---
Progress Note: A&P Assessment and Plan (1) Acute metabolic encephalopathy: Code(s): G93.41 - Metabolic encephalopathy Status: Acute (2) Early onset Alzheimer's dementia: Code(s): G30.0 - Alzheimer's disease with early onset; F02.80 - Dementia in other diseases classified elsewhere, unspecified severity, without behavioral disturbance, psychotic disturbance, mood disturbance, and anxiety Status: Acute (3) UTI (urinary tract infection): Code(s): N39.0 - Urinary tract infection, site not specified Status: Acute (4) Intertrochanteric fracture: Qualifiers: Encounter type: initial encounter Fracture type: closed Fracture alignment: displaced Laterality: left Qualified Code(s): S72.142A - Displaced intertrochanteric fracture of left femur, initial encounter for closed fracture Code(s): S72.143A - Displaced intertrochanteric fracture of unspecified femur, initial encounter for closed fracture Status: Acute (5) Elevated LFTs: Code(s): R79.89 - Other specified abnormal findings of blood chemistry Status: Acute Plan Metabolic encephalopathy * History of dementia, worsened mental status, CT head show previous infarct no acute issues, maybe secondary to post-op delirium/anesthesia * History of aggressive/cassidy behavior resumed home medication * Psychiatry following adjusted psych medications * added Seroquel nightly * sitter at bedside * soft restraints remove when no longer medical harm to self * Neuro check q4 hours * Fall precaution * UDS, HIV, RPR, GGT and hepatic Negative Alzheimer dementia * Patient on Aricept and memantine for Alzheimer's dementia.? * Patient's behaviors are worsening and he has become very violent at home.? * Discussed case with our on-call psychiatrist and they are recommending transfer to geriatric psych.. * Phone number for [facility] psych transfer [phone]/Refused transfer * will continue to adjust psych medications * Added Seroquel BID responding well UTI-RULED OUT * Initial UA negative for UTI-Negative * F/U UTI pending * ceftriaxone IV will de-escalate pending culture Displaced intertrochanteric fracture of unspecified femur, initial encounter for closed fracture * Patient recently hospitalized due to left hip fracture and had insertion of intramedullary sarah on 12/15/2023 * Patient on aspirin for anticoagulation therapy.? * Patient does need PT and OT but due to his behaviors this has become difficult/Will order when patient is better controlled and able to follow commands. Elevated LFTs: * patient found to have elevated bilirubin of 1.4, AST 70, ALT 73, alk-phos 144.? * Abdominal ultrasound normal * Hepatitis panel pending * GGT ordered/Pending * No history of alcohol or substance abuse Code status: Full code per patient DVT prophylaxis: SCD's Stress ulcer prophylaxis: Protonix 40 daily PT/OT notes: PT/OT Pending Disposition: Will need placement to SNF at discharge will attempt transfer to a geriatric Psych. -Patient's previous records reviewed on admission -ER notes reviewed in detail on admission -discussed all findings and current treatment plan with patient/Family/POA -Consultations reviewed for recommendations -Patient's disposition for safe discharge discussed with pillowcase cutter Dictation performed by [employer] direct speech recognition software, therefore facilities coordinator variants and typographical errors may occur. Time Spent With Patient Time with patient: 15 -
--- NOTE | 2023-12-24 10:45 | PM.IMPN ---
Progress Note: A&P Assessment and Plan (1) Acute metabolic encephalopathy: Code(s): G93.41 - Metabolic encephalopathy Status: Acute (2) Early onset Alzheimer's dementia: Code(s): G30.0 - Alzheimer's disease with early onset; F02.80 - Dementia in other diseases classified elsewhere, unspecified severity, without behavioral disturbance, psychotic disturbance, mood disturbance, and anxiety Status: Acute (3) UTI (urinary tract infection): Code(s): N39.0 - Urinary tract infection, site not specified Status: Acute (4) Intertrochanteric fracture: Qualifiers: Encounter type: initial encounter Fracture type: closed Fracture alignment: displaced Laterality: left Qualified Code(s): S72.142A - Displaced intertrochanteric fracture of left femur, initial encounter for closed fracture Code(s): S72.143A - Displaced intertrochanteric fracture of unspecified femur, initial encounter for closed fracture Status: Acute (5) Elevated LFTs: Code(s): R79.89 - Other specified abnormal findings of blood chemistry Status: Acute Plan Metabolic encephalopathy History of dementia, worsened mental status, CT head show previous infarct no acute issues, maybe secondary to post-op delirium/anesthesia History of aggressive/cassidy behavior resumed home medication Psychiatry following adjusted psych medications added Seroquel nightly sitter at bedside soft restraints remove when no longer medical harm to self Neuro check q4 hours Fall precaution UDS, HIV, RPR, GGT and hepatic Negative Alzheimer dementia Patient on Aricept and memantine for Alzheimer's dementia.? Patient's behaviors are worsening and he has become very violent at home.? Discussed case with our on-call psychiatrist and they are recommending transfer to geriatric psych.. Phone number for [facility] transfer [phone]/Refused transfer will continue to adjust psych medications Added Seroquel BID responding well UTI-RULED OUT Initial UA negative for UTI-Negative F/U UTI pending ceftriaxone IV will de-escalate pending culture Displaced intertrochanteric fracture of unspecified femur, initial encounter for closed fracture Patient recently hospitalized due to left hip fracture and had insertion of intramedullary sarah on 12/15/2023 Patient on aspirin for anticoagulation therapy.? Patient does need PT and OT but due to his behaviors this has become difficult/Will order when patient is better controlled and able to follow commands. Elevated LFTs: patient found to have elevated bilirubin of 1.4, AST 70, ALT 73, alk-phos 144.? Abdominal ultrasound normal Hepatitis panel pending GGT ordered/Pending No history of alcohol or substance abuse Code status: Full code per patient DVT prophylaxis: SCD's Stress ulcer prophylaxis: Protonix 40 daily PT/OT notes: PT/OT Pending Disposition: Will need placement to SNF at discharge will attempt transfer to a geriatric Psych. -Patient's previous records reviewed on admission -ER notes reviewed in detail on admission -discussed all findings and current treatment plan with patient/Family/POA -Consultations reviewed for recommendations -Patient's disposition for safe discharge discussed with senior case manager Dictation performed by [employer] direct speech recognition software, therefore clinical neuropsychologist variants and typographical errors may occur. Time Spent With Patient Time with patient: 15 - 25 minutes Subjective Date/time seen: 12/24/23 10:45 Interval history: 63-year-old male with history of hypertension, dementia, BPH, anxiety, brought to ED because of altered mental status. ? Patient was seen in the hospital last week for a fall resulting in a fracture of his left hip.? Patient was discharged back to home on December 17.? Patient's family noticed patient has worsening mental status since yesterday, patient has diagnosed e
[2023-12-24] MEDS: QUEtiapine FUMARATE 25 MG TABLET 50 MG PO ×2 (10:50→21:51)
[2023-12-24 12:00] LABS: Glucose Point of Care 111 mg/dl (65-105)
[2023-12-24 14:00] VITALS: TEMP 36.6
[2023-12-24] MEDS: OLANZapine 10 MG, WATER, STERILE FOR INJECTION 2.1 ML IM (14:02)
--- NOTE | 2023-12-24 15:43 | PC.NURSE ---
Patient in soft wrist restraints related to violent/combative/confused behavior. At approximately 1400 patient became more agitated attempting to get out of restraints/get out of bed and cursing at staff members. IV Ativan ordered for agitation, but patient lost IV access. Unable to place new IV with security present and soft wrist restraints in place- pt continues thrashing. Obtained order for IM Zyprexa 10mg. Patient continued behaviors and soft ankle restraints were placed and order from provider was obtained. Will attempt new IV once patient is settled down. 1400 IV flagyl not yet given related to loss of IV access.
[2023-12-24 17:28] LABS: Glucose Point of Care 42 mg/dl (65-105)
[2023-12-24 17:28] LABS: Glucose Point of Care 117 mg/dl (65-105)
[2023-12-24] MEDS: LORazepam INJ (*CRX) 2 MG/ML VIAL 0.5 MG IV PUSH (18:17)
[2023-12-24 20:28] VITALS: BP 107/65; PULSE 69; RESP 18; TEMP 36.4; O2SAT 98
[2023-12-24] MEDS: risperiDONE 0.25 MG TABLET 0.5 MG PO (21:51)
[2023-12-24] MEDS: DONEPEZIL HCL 5 MG TABLET PO (21:52)
[2023-12-24 22:22] VITALS: O2SAT 98
[2023-12-24 23:57] LABS: GGT 49 U/L (3-70)
[2023-12-25 06:00] VITALS: BP 112/66; PULSE 85; RESP 16; TEMP 36.6; O2SAT 90
[2023-12-25 06:20] LABS: Hematocrit 40.5 % (42.0-52.0); Hemoglobin 12.9 g/dL (14.0-18.0); Mean Corpuscular HGB Conc 31.9 g/dl (32-36); Mean Corpuscular Hemoglobin 29.5 pg (26-34); Mean Corpuscular Volume 92.7 fl (80-100); Mean Platelet Volume 9.6 fl (7.4-10.4); Platelet Count Result 493 k/mm3 (150-375); Red Blood Count 4.37 M/mm3 (4.6-6.20); Red Cell Distribution Width 13.2 % (11.5-14.5); White Blood Count 9.8 K/mm3 (4.5-10.0)
[2023-12-25 06:31] LABS: Alanine Aminotransferase 49 U/L (6-50); Albumin Level 3.6 g/dL (3.5-5.1); Alkaline Phosphatase 182 U/L (38-126); Anion Gap 7 mmol/L (8-16); Aspartate Amino Transferase 35 U/L (17-59); Bilirubin,Total 1.2 mg/dL (0.2-1.3); Blood Urea Nitrogen 22 mg/dL (9-20); Carbon Dioxide 25 mmol/L (22-30); Chloride 105 mmol/L (98-107); Estimated CRCL calculation 91 ml/min; Estimated Glomerular Filt Rate > 60; Glucose 108 mg/dL (65-110); Sodium 137 mmol/L (137-145)
[2023-12-25 08:00] VITALS: PULSE 85; RESP 16
--- NOTE | 2023-12-25 09:51 | P.PNIM_ITS ---
Progress Note: A&P Assessment and Plan (1) Acute metabolic encephalopathy: Code(s): G93.41 - Metabolic encephalopathy Status: Acute (2) Early onset Alzheimer's dementia: Code(s): G30.0 - Alzheimer's disease with early onset; F02.80 - Dementia in other diseases classified elsewhere, unspecified severity, without behavioral disturbance, psychotic disturbance, mood disturbance, and anxiety Status: Acute (3) UTI (urinary tract infection): Code(s): N39.0 - Urinary tract infection, site not specified Status: Acute (4) Intertrochanteric fracture: Qualifiers: Encounter type: initial encounter Fracture type: closed Fracture alignment: displaced Laterality: left Qualified Code(s): S72.142A - Displaced intertrochanteric fracture of left femur, initial encounter for closed fracture Code(s): S72.143A - Displaced intertrochanteric fracture of unspecified femur, initial encounter for closed fracture Status: Acute (5) Elevated LFTs: Code(s): R79.89 - Other specified abnormal findings of blood chemistry Status: Acute Plan Metabolic encephalopathy * History of dementia, worsened mental status, CT head show previous infarct no acute issues, maybe secondary to post-op delirium/anesthesia * History of aggressive/cassidy behavior resumed home medication * Psychiatry following adjusted psych medications * added Seroquel nightly * sitter at bedside * soft restraints remove when no longer medical harm to self * Neuro check q4 hours * Fall precaution * UDS, HIV, RPR, GGT and hepatic Negative Alzheimer dementia * Patient on Aricept and memantine for Alzheimer's dementia.? * Patient's behaviors are worsening and he has become very violent at home.? * Discussed case with our on-call psychiatrist and they are recommending transfer to geriatric psych.. * Phone number for [facility] psych transfer [phone]/Refused transfer * will continue to adjust psych medications * Added Seroquel BID responding well UTI-RULED OUT * Initial UA negative for UTI-Negative * F/U UTI pending * ceftriaxone IV will de-escalate pending culture Displaced intertrochanteric fracture of unspecified femur, initial encounter for closed fracture * Patient recently hospitalized due to left hip fracture and had insertion of intramedullary sarah on 12/15/2023 * Patient on aspirin for anticoagulation therapy.? * Patient does need PT and OT but due to his behaviors this has become difficult/Will order when patient is better controlled and able to follow commands. Elevated LFTs: * patient found to have elevated bilirubin of 1.4, AST 70, ALT 73, alk-phos 144.? * Abdominal ultrasound normal * Hepatitis panel pending * GGT ordered/Pending * No history of alcohol or substance abuse Code status: Full code per patient DVT prophylaxis: SCD's Stress ulcer prophylaxis: Protonix 40 daily PT/OT notes: PT/OT Pending Disposition: Will need placement to SNF at discharge will attempt transfer to a geriatric Psych. -Patient's previous records reviewed on admission -ER notes reviewed in detail on admission -discussed all findings and current treatment plan with patient/Family/POA -Consultations reviewed for recommendations -Patient's disposition for safe discharge discussed with case work aide Dictation performed by [employer] direct speech recognition software, therefore meter readers supervisor variants and typographical errors may occur. Time Spent With Patient Time with patient: 15 -
--- NOTE | 2023-12-25 09:51 | PM.IMPN ---
Progress Note: A&P Assessment and Plan (1) Acute metabolic encephalopathy: Code(s): G93.41 - Metabolic encephalopathy Status: Acute (2) Early onset Alzheimer's dementia: Code(s): G30.0 - Alzheimer's disease with early onset; F02.80 - Dementia in other diseases classified elsewhere, unspecified severity, without behavioral disturbance, psychotic disturbance, mood disturbance, and anxiety Status: Acute (3) UTI (urinary tract infection): Code(s): N39.0 - Urinary tract infection, site not specified Status: Acute (4) Intertrochanteric fracture: Qualifiers: Encounter type: initial encounter Fracture type: closed Fracture alignment: displaced Laterality: left Qualified Code(s): S72.142A - Displaced intertrochanteric fracture of left femur, initial encounter for closed fracture Code(s): S72.143A - Displaced intertrochanteric fracture of unspecified femur, initial encounter for closed fracture Status: Acute (5) Elevated LFTs: Code(s): R79.89 - Other specified abnormal findings of blood chemistry Status: Acute Plan Metabolic encephalopathy History of dementia, worsened mental status, CT head show previous infarct no acute issues, maybe secondary to post-op delirium/anesthesia History of aggressive/cassidy behavior resumed home medication Psychiatry following adjusted psych medications added Seroquel nightly sitter at bedside soft restraints remove when no longer medical harm to self Neuro check q4 hours Fall precaution UDS, HIV, RPR, GGT and hepatic Negative Alzheimer dementia Patient on Aricept and memantine for Alzheimer's dementia.? Patient's behaviors are worsening and he has become very violent at home.? Discussed case with our on-call psychiatrist and they are recommending transfer to geriatric psych.. Phone number for [facility] transfer [phone]/Refused transfer will continue to adjust psych medications Added Seroquel BID responding well UTI-RULED OUT Initial UA negative for UTI-Negative F/U UTI pending ceftriaxone IV will de-escalate pending culture Displaced intertrochanteric fracture of unspecified femur, initial encounter for closed fracture Patient recently hospitalized due to left hip fracture and had insertion of intramedullary sarah on 12/15/2023 Patient on aspirin for anticoagulation therapy.? Patient does need PT and OT but due to his behaviors this has become difficult/Will order when patient is better controlled and able to follow commands. Elevated LFTs: patient found to have elevated bilirubin of 1.4, AST 70, ALT 73, alk-phos 144.? Abdominal ultrasound normal Hepatitis panel pending GGT ordered/Pending No history of alcohol or substance abuse Code status: Full code per patient DVT prophylaxis: SCD's Stress ulcer prophylaxis: Protonix 40 daily PT/OT notes: PT/OT Pending Disposition: Will need placement to SNF at discharge will attempt transfer to a geriatric Psych. -Patient's previous records reviewed on admission -ER notes reviewed in detail on admission -discussed all findings and current treatment plan with patient/Family/POA -Consultations reviewed for recommendations -Patient's disposition for safe discharge discussed with catalytic case operator Dictation performed by [employer] direct speech recognition software, therefore manager of maintenance variants and typographical errors may occur. Time Spent With Patient Time with patient: 15 - 25 minutes Subjective Date/time seen: 12/25/23 09:51 Interval history: 63-year-old male with history of hypertension, dementia, BPH, anxiety, brought to ED because of altered mental status. ? Patient was seen in the hospital last week for a fall resulting in a fracture of his left hip.? Patient was discharged back to home on December 17.? Patient's family noticed patient has worsening mental status since yesterday, patient has diagnosed e
[2023-12-25] MEDS: TAMSULOSIN HCL 0.4 MG CAPSULE PO (09:59)
[2023-12-25] MEDS: QUEtiapine FUMARATE 25 MG TABLET 50 MG PO ×2 (09:59→21:01)
[2023-12-25] MEDS: SERTRALINE HCL 50 MG TABLET PO (10:00)
[2023-12-25] MEDS: ENOXAPARIN 40 MG/0.4 ML SYRINGE SUB-Q (10:00)
[2023-12-25] MEDS: MEMANTINE 10 MG TABLET PO ×2 (10:00→21:01)
[2023-12-25 14:00] VITALS: BP 122/55; PULSE 77; RESP 16; TEMP 36.3; O2SAT 97
--- NOTE | 2023-12-25 15:53 | PC.NURSE ---
Spoke with [facility] intake advertising account representative re: patient activity and mobility. I read the Home Health nurse notes from 12/18/23 which state the patient was using a wheeled walker and ambulating with minimal touch assist. PT stated that pt does not need their services 12/23/23.
[2023-12-25] MEDS: LORazepam INJ (*CRX) 2 MG/ML VIAL 0.5 MG IV PUSH (17:49)
[2023-12-25] MEDS: OLANZapine 10 MG INJ VIAL 5 MG IM (18:46)
[2023-12-25 19:09] VITALS: BP 101/62; PULSE 83; RESP 16; TEMP 36.4; O2SAT 95
[2023-12-25 20:03] LABS: Glucose Point of Care 122 mg/dl (65-105)
[2023-12-25] MEDS: risperiDONE 0.25 MG TABLET 0.5 MG PO (21:01)
[2023-12-25] MEDS: DONEPEZIL HCL 5 MG TABLET PO (21:01)
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
[2023-12-25 21:38] VITALS: O2SAT 95
[2023-12-26 05:05] LABS: Hematocrit 37.4 % (42.0-52.0); Hemoglobin 12.2 g/dL (14.0-18.0); Mean Corpuscular HGB Conc 32.6 g/dl (32-36); Mean Corpuscular Hemoglobin 29.8 pg (26-34); Mean Corpuscular Volume 91.2 fl (80-100); Mean Platelet Volume 9.5 fl (7.4-10.4); Platelet Count Result 481 k/mm3 (150-375); Red Cell Distribution Width 13.2 % (11.5-14.5); White Blood Count 9.7 K/mm3 (4.5-10.0)
[2023-12-26 05:18] LABS: Alanine Aminotransferase 44 U/L (6-50); Albumin Level 3.4 g/dL (3.5-5.1); Alkaline Phosphatase 196 U/L (38-126); Anion Gap 5 mmol/L (8-16); Aspartate Amino Transferase 33 U/L (17-59); Bilirubin,Total 0.9 mg/dL (0.2-1.3); Blood Urea Nitrogen 26 mg/dL (9-20); Calcium 8.6 mg/dL (8.4-10.2); Carbon Dioxide 29 mmol/L (22-30); Chloride 104 mmol/L (98-107); Estimated CRCL calculation 82 ml/min; Estimated Glomerular Filt Rate > 60; Glucose 110 mg/dL (65-110); Potassium 3.8 mmol/L (3.4-5.0); Sodium 138 mmol/L (137-145)
[2023-12-26 06:00] VITALS: BP 106/74; PULSE 72; RESP 16; TEMP 36.6; O2SAT 96
[2023-12-26] MEDS: SERTRALINE HCL 50 MG TABLET PO (08:25)
[2023-12-26] MEDS: TAMSULOSIN HCL 0.4 MG CAPSULE PO (08:25)
[2023-12-26] MEDS: QUEtiapine FUMARATE 25 MG TABLET 50 MG PO ×2 (08:25→19:37)
[2023-12-26] MEDS: OLANZapine 5 MG TABLET 10 MG PO (08:25)
[2023-12-26] MEDS: MEMANTINE 10 MG TABLET PO ×2 (08:25→19:38)
[2023-12-26] MEDS: ACETAMINOPHEN 325 MG TABLET 650 MG PO (08:25)
[2023-12-26] MEDS: ENOXAPARIN 40 MG/0.4 ML SYRINGE SUB-Q (08:34)
--- NOTE | 2023-12-26 08:35 | PC.NURSE ---
left arm released from restraint for pt to be able to feed himself, he is cooperative and in good spirits, sitter at bedside
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
[2023-12-26 14:00] VITALS: BP 106/63; PULSE 68; RESP 16; TEMP 36.8; O2SAT 96
[2023-12-26 19:28] VITALS: BP 105/65; PULSE 76; RESP 16; TEMP 36.6; O2SAT 95
[2023-12-26] MEDS: DONEPEZIL HCL 5 MG TABLET PO (19:38)
[2023-12-26] MEDS: risperiDONE 0.25 MG TABLET 0.5 MG PO (19:38)
[2023-12-27 03:19] VITALS: BP 114/65; PULSE 60; RESP 18; TEMP 36.5; O2SAT 93
[2023-12-27 05:51] LABS: Hematocrit 38.1 % (42.0-52.0); Hemoglobin 12.3 g/dL (14.0-18.0); Mean Corpuscular HGB Conc 32.3 g/dl (32-36); Mean Corpuscular Hemoglobin 29.4 pg (26-34); Mean Corpuscular Volume 91.1 fl (80-100); Mean Platelet Volume 9.5 fl (7.4-10.4); Platelet Count Result 522 k/mm3 (150-375); Red Blood Count 4.18 M/mm3 (4.6-6.20); Red Cell Distribution Width 13.2 % (11.5-14.5); White Blood Count 11.2 K/mm3 (4.5-10.0)
[2023-12-27 06:23] LABS: Alanine Aminotransferase 49 U/L (6-50); Albumin Level 3.7 g/dL (3.5-5.1); Alkaline Phosphatase 243 U/L (38-126); Anion Gap 7 mmol/L (8-16); Aspartate Amino Transferase 48 U/L (17-59); Blood Urea Nitrogen 21 mg/dL (9-20); Calcium 8.8 mg/dL (8.4-10.2); Carbon Dioxide 24 mmol/L (22-30); Chloride 107 mmol/L (98-107); Estimated CRCL calculation 91 ml/min; Estimated Glomerular Filt Rate > 60; Glucose 102 mg/dL (65-110); Sodium 138 mmol/L (137-145)
[2023-12-27] MEDS: OLANZapine 10 MG INJ VIAL IM (08:01)
[2023-12-27] MEDS: WATER, STERILE FOR INJECTION 10 ML VIAL XX (08:04)
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
--- NOTE | 2023-12-27 08:56 | ECG_ITS ---
Measurements Intervals [place] Rate: 83 P: 90 [place]: 153 QRS: 52 QRSD: 86 T: 60 QT: 378 QTc: 445 Interpretive Statements SINUS RHYTHM ARTIFACT LIMITS INTERPRETATION NORMAL ECG COMPARED TO ECG 12/16/2023 15:52:56 NO SIGNIFICANT CHANGES Electronically Signed On 12-28-2023 8:35:29 VEGETABLE FARMING SUPERVISOR by Timbo Brooks M.D.
[2023-12-27 14:00] VITALS: BP 119/71; PULSE 68; RESP 16; TEMP 36.6; O2SAT 98
[2023-12-27] MEDS: ACETAMINOPHEN 325 MG TABLET 650 MG PO (18:00)
[2023-12-27 20:01] VITALS: BP 149/63; PULSE 76; RESP 18; TEMP 36.8
[2023-12-27] MEDS: QUEtiapine FUMARATE 25 MG TABLET 50 MG PO (20:15)
[2023-12-27] MEDS: DONEPEZIL HCL 5 MG TABLET PO (20:15)
[2023-12-27] MEDS: MEMANTINE 10 MG TABLET PO (20:15)
[2023-12-27] MEDS: risperiDONE 0.25 MG TABLET 0.5 MG PO (20:15)
[2023-12-28] MEDS: OLANZapine 10 MG INJ VIAL IM ×2 (01:00→15:17)
[2023-12-28] MEDS: WATER, STERILE FOR INJECTION 10 ML VIAL XX ×3 (02:02→23:06)
[2023-12-28 05:43] LABS: Hematocrit 39.2 % (42.0-52.0); Hemoglobin 12.6 g/dL (14.0-18.0); Mean Corpuscular HGB Conc 32.1 g/dl (32-36); Mean Corpuscular Hemoglobin 29.7 pg (26-34); Mean Corpuscular Volume 92.5 fl (80-100); Mean Platelet Volume 9.7 fl (7.4-10.4); Platelet Count Result 507 k/mm3 (150-375); Red Blood Count 4.24 M/mm3 (4.6-6.20); Red Cell Distribution Width 13.2 % (11.5-14.5); White Blood Count 11.5 K/mm3 (4.5-10.0)
[2023-12-28 05:57] LABS: Alanine Aminotransferase 52 U/L (6-50); Albumin Level 3.7 g/dL (3.5-5.1); Alkaline Phosphatase 292 U/L (38-126); Anion Gap 6 mmol/L (8-16); Aspartate Amino Transferase 41 U/L (17-59); Blood Urea Nitrogen 21 mg/dL (9-20); Calcium 9.1 mg/dL (8.4-10.2); Carbon Dioxide 27 mmol/L (22-30); Chloride 107 mmol/L (98-107); Estimated CRCL calculation 82 ml/min; Estimated Glomerular Filt Rate > 60; Glucose 107 mg/dL (65-110); Sodium 140 mmol/L (137-145)
[2023-12-28 06:00] VITALS: BP 103/86; PULSE 125; RESP 18; TEMP 36.6; O2SAT 92
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
[2023-12-28 14:04] VITALS: BP 137/59; PULSE 68; RESP 17; TEMP 36.7; O2SAT 98
[2023-12-28 20:00] VITALS: BP 128/61; PULSE 78; RESP 18; TEMP 36.9; O2SAT 98
[2023-12-28] MEDS: QUEtiapine FUMARATE 25 MG TABLET 50 MG PO (20:22)
[2023-12-28] MEDS: MEMANTINE 10 MG TABLET PO (20:23)
[2023-12-28] MEDS: DONEPEZIL HCL 5 MG TABLET PO (20:23)
[2023-12-28] MEDS: risperiDONE 0.25 MG TABLET 0.5 MG PO (20:23)
[2023-12-28] MEDS: OLANZapine 10 MG, WATER, STERILE FOR INJECTION 2.1 ML IM (22:25)
[2023-12-28] MEDS: diphenhydrAMINE HCl INJ 50 MG/ML VIAL IM (23:05)
[2023-12-28] MEDS: LORazepam INJ (*CRX) 2 MG/ML VIAL 1 MG IM (23:06)
[2023-12-29] VITALS (7 sets, daily range): BP systolic 117–120; BP diastolic 67–85; PULSE 68–85; RESP 16–20; TEMP 36.3–36.4; O2SAT 93–98
--- NOTE | 2023-12-29 00:20 | PC.NURSE ---
Patient violent with staff overnight multiple times requiring multiple calls to material handler 1st shift provider. He has attempted to head butt and bite staff despite being in soft wrist and ankle restraints, trying to grab fingers and twist when adjusting wrist restraints, kicking and kneeing as much as he can at staff despite being in ankle restraints, and he is verbally abusive often using racial expletives.
[2023-12-29 06:20] LABS: Hematocrit 41.5 % (42.0-52.0); Mean Corpuscular HGB Conc 31.3 g/dl (32-36); Mean Corpuscular Hemoglobin 29.5 pg (26-34); Mean Corpuscular Volume 94.3 fl (80-100); Mean Platelet Volume 9.7 fl (7.4-10.4); Platelet Count Result 531 k/mm3 (150-375); Red Cell Distribution Width 13.3 % (11.5-14.5); White Blood Count 12.9 K/mm3 (4.5-10.0)
[2023-12-29 06:34] LABS: Alanine Aminotransferase 50 U/L (6-50); Albumin Level 3.9 g/dL (3.5-5.1); Alkaline Phosphatase 315 U/L (38-126); Anion Gap 5 mmol/L (8-16); Aspartate Amino Transferase 39 U/L (17-59); Blood Urea Nitrogen 24 mg/dL (9-20); Calcium 9.2 mg/dL (8.4-10.2); Carbon Dioxide 28 mmol/L (22-30); Chloride 107 mmol/L (98-107); Estimated CRCL calculation 74 ml/min; Estimated Glomerular Filt Rate > 60; Glucose 106 mg/dL (65-110); Potassium 4.3 mmol/L (3.4-5.0); Sodium 140 mmol/L (137-145)
[2023-12-29 09:54] LABS: Procalcitonin 0.1 ng/mL
--- NOTE | 2023-12-29 10:17 | PM.IMPN ---
Progress Note: A&P Assessment and Plan (1) Alzheimer's dementia with behavioral disturbance: Code(s): G30.9 - Alzheimer's disease, unspecified; F02.818 - Dementia in other diseases classified elsewhere, unspecified severity, with other behavioral disturbance Status: Acute (2) Elevated alkaline phosphatase level: Code(s): R74.8 - Abnormal levels of other serum enzymes Status: Acute (3) Acute encephalopathy: Code(s): G93.40 - Encephalopathy, unspecified Status: Acute (4) Intertrochanteric fracture: Qualifiers: Encounter type: initial encounter Fracture alignment: displaced Fracture type: closed Laterality: left Qualified Code(s): S72.142A - Displaced intertrochanteric fracture of left femur, initial encounter for closed fracture Code(s): S72.143A - Displaced intertrochanteric fracture of unspecified femur, initial encounter for closed fracture Status: Acute Plan A 63-year-old male with a history of Alzheimer's dementia and depression. He had a fall in November and and subsequently underwent an intra medullary sarah of the left hip with Dr. Lombardi on 12/15/2023. At that time it was noted he had more confusion. He was discharged home on 12/17 but readmitted on 12/21 due to worsening confusion and aggressiveness. Unfortunately, the patient's behavioral disturbance/psychosis has been so far under managed. Discussion held with Dr. Nichols on 12/29. He will write a formal progress note tomorrow on 12/30. For now he suggests increasing the Risperdal 0.5 mg to 2 mg q.h.s.. The patient has been receiving this nightly dose of 0.5 thus far. Scheduled Zyprexa has been discontinued. Continue Zyprexa 10 mg p.o. or IM b.i.d. p.r.n. Ativan 0.5 mg q.6 hours p.r.n. IV has been changed to p.o. or IM. Continue Seroquel b.i.d. and sertraline daily, donepezil and memantine. CT head conducted on 12/14/2023 which was during the admission where his hip was repaired. Nothing was seen then. 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 Agree with Dr. Nichols there has been a stroke in the recent past which may have much to do with his worsened mental status superimposed on Alzheimer's dementia. Acetaminophen and salicylate level were not drawn however he does not have an acid-base disturbance so it is unlikely these are the culprit. I have added an ammonia level for the next time we can get blood work as that has not been checked. He does have an elevated and increasing alkaline phosphatase. However, gamma glutamyl transpeptidase is normal. I checked a procalcitonin and it was unremarkable at 0.1. His white count has been increasing over the past 3 days however no differential was drawn. Suspect there is a left shift just like there was on admission. Will check CBC with differential ongoing. He may or may not benefit from antibiotics due to the above along with MRI brain and malone scan and lumbar puncture. Repeat UA has been checked, it was abnormal on 12/21/2023 with elevated leuk esterase and wbc's however urine culture was unremarkable. I am unable to determine the timing of which ceftriaxone was given so I do not know how reliable the UA and culture are. Call made out to [facility] [facility] and they do not have a bed available. Call made out to [facility] and a transfer is pending. I was told the 1st transfer request was denied because the orthopedic surgery team could not make a care plan including weight-bearing orders etc. I let Becky ([phone] option 1) at the transfer center know that with this information I do not see reason for denial of the transfer and asked that this be re-evaluated seriously. The patient does need and qualify for tertiary care. She said she would do so and is coordinating with the hospitalist Dr. Brewer. Another call could be made out to [facility] as well as they have psychiatrists. Samantha
[2023-12-29] MEDS: TAMSULOSIN HCL 0.4 MG CAPSULE PO (10:52)
[2023-12-29] MEDS: ENOXAPARIN 40 MG/0.4 ML SYRINGE SUB-Q (10:53)
[2023-12-29] MEDS: OLANZapine 5 MG TABLET 10 MG PO ×2 (10:53→20:43)
[2023-12-29] MEDS: MEMANTINE 10 MG TABLET PO ×2 (10:53→20:43)
[2023-12-29] MEDS: QUEtiapine FUMARATE 25 MG TABLET 50 MG PO ×2 (10:53→20:43)
[2023-12-29] MEDS: SERTRALINE HCL 50 MG TABLET PO (10:54)
[2023-12-29 11:43] LABS: Appearance Urine Clear (Clear); Bacteria Urine None Seen /hpf; Bilirubin Urine Negative (Negative); Color Urine Yellow (Yellow); Glucose Urine UA Negative (Negative); Ketones Urine Negative (Negative); Leukocyte Esterase Ur Negative LEU/UL (NEGATIVE); Nitrate Urine Negative (Negative); Non Pathogenic Casts 0-2; Protein Urine Negative (Negative); Specific Grav Ur 1.023 (1.001-1.035); Squamous Epithelial Cell Urine None seen /hpf (Few); WBC Urine 0-5 /hpf (0-3)
--- NOTE | 2023-12-29 12:03 | PC.NURSE ---
Crime Data Specialist called Dr. Mendoza made aware unable to obtain MRSA swab patient is agitated attempting to get out of bed, patient adamantly refusing, although he is only alert to person and delusional about situation. Made provider aware IV access is not able to be obtained at this time while patient remains aggressive and agitated.
[2023-12-29 12:10] LABS: Add Urine Microscopic? YES
[2023-12-29] MEDS: risperiDONE 0.25 MG TABLET 0.5 MG PO (12:32)
--- NOTE | 2023-12-29 13:35 | PC.NURSE ---
Too into an IMU overflow bed. Sitter at bedside. Voiding.
[2023-12-29] MEDS: CEFEPIME 2 GM/NS 50 ML 2 GM/50 ML BAG IVPB (14:26)
[2023-12-29] MEDS: PANTOPRAZOLE 40 MG TABLET PO (14:27)
[2023-12-29] MEDS: LORazepam (*CRX) 0.5 MG TABLET PO (14:28)
[2023-12-29] MEDS: risperiDONE 1 MG TABLET 2 MG PO (20:43)
[2023-12-29] MEDS: DONEPEZIL HCL 5 MG TABLET PO (20:43)
--- NOTE | 2023-12-29 21:03 | PC.NURSE ---
The patient has been very agitated, restless and unable to sit still. PRN Zyprexa given. He will not leave our monitoring equipment on so unable to keep on tele or obtain regular vitals at this time. Remains in 4-point restraints which are only somewhat effective. Will reapply monitoring equipment when possible. Provider notified.
[2023-12-29] MEDS: NICOTINE (*PBKC) 14 MG PATCH 1 PATCH TRANSDERM (22:05)
[2023-12-29] MEDS: LORazepam INJ (*CRX) 2 MG/ML VIAL IV PUSH (22:37)
[2023-12-30] VITALS (11 sets, daily range): BP systolic 98–158; BP diastolic 63–100; PULSE 60–101; RESP 13–21; TEMP 36.4–36.7; O2SAT 96–99
[2023-12-30 06:36] LABS: Basophils Absolute Auto 0.1 K/mm3 (0.0-0.1); Basophils Percent Auto 0.7 % (0.2-1.2); Eosinophils Absolute Auto 0.2 K/mm3 (0-0.3); Eosinophils Percent Auto 1.6 % (0-4.4); Hematocrit 42.1 % (42.0-52.0); Hemoglobin 13.1 g/dL (14.0-18.0); Immature Granulocyte Absolute 0.05 K/mm3 (0.00-0.031); Immature Granulocyte Percent A 0.5 % (0-0.5); Lymphocytes Absolute Auto 1.89 K/mm3 (0.9-3.2); Lymphocytes Percent Auto 19.4 % (18.3-44.2); Mean Corpuscular HGB Conc 31.1 g/dl (32-36); Mean Corpuscular Hemoglobin 29.2 pg (26-34); Mean Corpuscular Volume 93.8 fl (80-100); Mean Platelet Volume 9.7 fl (7.4-10.4); Monocytes Absolute Auto 0.8 K/mm3 (0.1-0.6); Monocytes Percent Auto 7.8 % (2.6-8.5); Neutrophils Absolute Auto 6.8 K/mm3 (1.3-6.7); Platelet Count Result 514 k/mm3 (150-375); Red Blood Count 4.49 M/mm3 (4.6-6.20); Red Cell Distribution Width 13.4 % (11.5-14.5); White Blood Count 9.8 K/mm3 (4.5-10.0)
[2023-12-30 06:41] LABS: Ammonia < 9 umol/L (9-30)
[2023-12-30 06:42] LABS: Alanine Aminotransferase 41 U/L (6-50); Albumin Level 3.8 g/dL (3.5-5.1); Alkaline Phosphatase 323 U/L (38-126); Anion Gap 4 mmol/L (8-16); Aspartate Amino Transferase 36 U/L (17-59); Bilirubin,Total 1.1 mg/dL (0.2-1.3); Blood Urea Nitrogen 23 mg/dL (9-20); CRP 3.3 mg/dL (<1.0); Calcium 9.1 mg/dL (8.4-10.2); Carbon Dioxide 27 mmol/L (22-30); Chloride 107 mmol/L (98-107); Estimated CRCL calculation 91 ml/min; Estimated Glomerular Filt Rate > 60; Glucose 103 mg/dL (65-110); Magnesium 2.6 mg/dL (1.6-2.3); Potassium 4.2 mmol/L (3.4-5.0); Sodium 138 mmol/L (137-145)
[2023-12-30 07:00] LABS: Procalcitonin 0.1 ng/mL
[2023-12-30] MEDS: ENOXAPARIN 40 MG/0.4 ML SYRINGE SUB-Q (08:24)
[2023-12-30] MEDS: PANTOPRAZOLE 40 MG TABLET PO (08:25)
[2023-12-30] MEDS: TAMSULOSIN HCL 0.4 MG CAPSULE PO (08:25)
[2023-12-30] MEDS: SERTRALINE HCL 50 MG TABLET PO (08:25)
[2023-12-30] MEDS: MEMANTINE 10 MG TABLET PO ×2 (08:25→20:28)
[2023-12-30] MEDS: NICOTINE (*PBKC) 14 MG PATCH 1 PATCH TRANSDERM (08:25)
[2023-12-30] MEDS: QUEtiapine FUMARATE 25 MG TABLET 50 MG PO ×2 (08:25→20:28)
--- NOTE | 2023-12-30 11:36 | PCDIET ---
Patient transferred to ICU. Diet order: Heart Healthy with Ensure compact BID. Oral Intake has been fair, 25-100% of meals per nursing. Patient is drinking ensure, frequency increased to TID. Agree with diet orders. No further nutritional interventions needed at this time.
--- NOTE | 2023-12-30 13:49 | PM.IMPN ---
Progress Note: A&P Assessment and Plan (1) Acute encephalopathy: Code(s): G93.40 - Encephalopathy, unspecified Status: Acute (2) Alzheimer's dementia with behavioral disturbance: Code(s): G30.9 - Alzheimer's disease, unspecified; F02.818 - Dementia in other diseases classified elsewhere, unspecified severity, with other behavioral disturbance Status: Acute (3) Elevated alkaline phosphatase level: Code(s): R74.8 - Abnormal levels of other serum enzymes Status: Acute (4) Intertrochanteric fracture: Qualifiers: Encounter type: initial encounter Fracture type: closed Fracture alignment: displaced Laterality: left Qualified Code(s): S72.142A - Displaced intertrochanteric fracture of left femur, initial encounter for closed fracture Code(s): S72.143A - Displaced intertrochanteric fracture of unspecified femur, initial encounter for closed fracture Status: Acute (5) Leukocytosis: Code(s): D72.829 - Elevated white blood cell count, unspecified Status: Acute Plan A 63-year-old male with a history of Alzheimer's dementia and depression. He had a fall in November and and subsequently underwent an intra medullary sarah of the left hip with Dr. Lombardi on 12/15/2023. At that time it was noted he had more confusion. He was discharged home on 12/17 but readmitted on 12/21 due to worsening confusion and aggressiveness. Unfortunately, the patient's behavioral disturbance/psychosis has been so far under managed. Discussion held with Dr. Nichols on 12/29. He will write a formal progress note tomorrow on 12/30. For now he suggests increasing the Risperdal 0.5 mg to 2 mg q.h.s.. The patient has been receiving this nightly dose of 0.5 thus far. Scheduled Zyprexa has been discontinued. Continue Zyprexa 10 mg p.o. or IM b.i.d. p.r.n. Ativan 0.5 mg q.6 hours p.r.n. IV has been changed to p.o. or IM. Continue Seroquel b.i.d. and sertraline daily, donepezil and memantine. CT head conducted on 12/14/2023 which was during the admission where his hip was repaired. Nothing was seen then. 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 Agree with Dr. Nichols there has been a stroke in the recent past which may have much to do with his worsened mental status superimposed on Alzheimer's dementia. Acetaminophen and salicylate level were not drawn however he does not have an acid-base disturbance so it is unlikely these are the culprit. I have added an ammonia level for the next time we can get blood work as that has not been checked. He does have an elevated and increasing alkaline phosphatase. However, gamma glutamyl transpeptidase is normal. I checked a procalcitonin and it was unremarkable at 0.1. His white count has been increasing over the past 3 days however no differential was drawn. Suspect there is a left shift just like there was on admission. Will check CBC with differential ongoing. He may or may not benefit from antibiotics due to the above along with MRI brain and malone scan and lumbar puncture. Repeat UA has been checked, it was abnormal on 12/21/2023 with elevated leuk esterase and wbc's however urine culture was unremarkable. I am unable to determine the timing of which ceftriaxone was given so I do not know how reliable the UA and culture are. Call made out to [facility] and they do not have a bed available. Call made out to [facility] and a transfer is pending. I was told the 1st transfer request was denied because the orthopedic surgery team could not make a care plan including weight-bearing orders etc. I let Becky ([phone] option 1) at the transfer center know that with this information I do not see reason for denial of the transfer and asked that this be re-evaluated seriously. The patient does need and qualify for tertiary care. She said she would do so and is coordinating with the
[2023-12-30] MEDS: LORazepam (*CRX) 0.5 MG TABLET PO (16:29)
[2023-12-30] MEDS: OLANZapine 5 MG TABLET 10 MG PO (16:29)
--- NOTE | 2023-12-30 20:09 | WPDPNPSYCH ---
Objective Data Vital Signs Vital Signs: Vital Signs - 24 hr 12/29/23 23:25 12/30/23 00:00 12/30/23 01:21 Temperature Pulse Rate 83 78 71 Respiratory Rate 20 17 14 Blood Pressure 158/100 H Pulse Oximetry 93 97 Oxygen Delivery 12/30/23 00:00 12/30/23 00:00 12/30/23 02:00 Temperature Pulse Rate 73 62 Respiratory Rate Blood Pressure Pulse Oximetry Oxygen Delivery Room Air 12/30/23 04:00 12/30/23 04:00 12/30/23 04:00 Temperature Pulse Rate 62 62 Respiratory Rate 14 Blood Pressure Pulse Oximetry Oxygen Delivery Room Air 12/30/23 06:00 12/30/23 06:00 12/30/23 08:00 Temperature 97.6 F 97.8 F Pulse Rate 60 60 77 Respiratory Rate 13 13 Blood Pressure 111/71 109/68 Pulse Oximetry 99 98 Oxygen Delivery 12/30/23 08:00 12/30/23 08:00 12/30/23 10:00 Temperature Pulse Rate 63 63 69 Respiratory Rate 14 Blood Pressure Pulse Oximetry 98 Oxygen Delivery Room Air 12/30/23 12:00 12/30/23 12:00 12/30/23 12:00 Temperature Pulse Rate 101 H 88 101 H Respiratory Rate 21 H 21 H Blood Pressure 119/84 Pulse Oximetry 99 99 Oxygen Delivery Room Air 12/30/23 14:00 12/30/23 16:00 12/30/23 16:00 Temperature 98.1 F Pulse Rate 72 101 H 74 Respiratory Rate 21 H Blood Pressure 112/63 Pulse Oximetry 98 Oxygen Delivery 12/30/23 16:00 Temperature Pulse Rate 74 Respiratory Rate 13 Blood Pressure Pulse Oximetry 98 Oxygen Delivery Room Air Intake/Output Intake/Output: Intake & Output 12/27/23 12/28/23 12/29/23 12/30/23 23:59 23:59 23:59 23:59 Intake Total 240 1940 1850 360 Output Total 800 375 550 500 Balance -560 1565 1300 -140 Meds/Results Medications: Active Medications Generic Name Dose Route Start Last Admin Trade Name Freq PRN Reason Stop Dose Admin Acetaminophen 650 mg 12/22/23 16:39 12/27/23 18:00 Acetaminophen 325 Mg Tablet PO 650 mg Q6H PRN Administration Mild Pain (1-3) or Fever Donepezil HCl 5 mg 12/22/23 21:00 12/29/23 20:43 Donepezil Hcl 5 Mg Tablet PO 5 mg HS VANDA Administration Enoxaparin Sodium 40 mg 12/22/23 09:00 12/30/23 08:24 Enoxaparin 40 Mg/0.4 Ml Syringe SUB-Q 40 mg DAILY VANDA Administration Dextrose/Sodium Chloride 1,000 mls @ 125 mls/hr 12/21/23 13:25 12/21/23 21:00 Dextrose 5% Sodium Chloride 0.9% IV CONT 0 mls/hr .Q8H VADNA Infusion Lorazepam 0.5 mg 12/29/23 12:20 12/30/23 16:29 Lorazepam (*Crx) 0.5 Mg Tablet PO 0.5 mg Q6H PRN Administration Anxiety Lorazepam 2 mg 12/29/23 21:33 12/29/23 22:37 Lorazepam Inj (*Crx) 2 Mg/Ml Vial IV PUSH 2 mg ONCE PRN Administration Agitation Memantine 10 mg 12/22/23 11:20 12/30/23 08:25 Memantine 10 Mg Tablet PO 10 mg Q12HR VANDA Administration Nicotine 1 patch 12/29/23 21:55 12/30/23 08:25 Nicotine (*Pbkc) 14 Mg Patch TRANSDERM 1 patch DAILY VANDA Administration Olanzapine 10 mg 12/29/23 10:14 12/30/23 16:29 Olanzapine 5 Mg Tablet PO 10 mg BID PRN Administration psychosis Ondansetron HCl 4 mg 12/21/23 13:25 Ondansetron Inj 4 Mg/2 Ml Vial IV PUSH Q6H PRN Nausea And Vomiting Pantoprazole Sodium 40 mg 12/29/23 12:55 12/30/23 08:25 Pantoprazole 40 Mg Tablet PO 40 mg QAM VANDA Administration Quetiapine Fumarate 50 mg 12/24/23 10:10 12/30/23 08:25 Quetiapine Fumarate 25 Mg Tablet PO 50 mg Q12HR VANDA Administration Risperidone 2 mg 12/29/23 21:00 12/29/23 20:43 Risperidone 1 Mg Tablet PO 2 mg QHS VANDA Administration Sertraline HCl 50 mg 12/22/23 11:20 12/30/23 08:25 Sertraline Hcl 50 Mg Tablet PO 50 mg DAILY VANDA Administration Tamsulosin HCl 0.4 mg 12/22/23 11:20 12/30/23 08:25 Tamsulosin Hcl 0.4 Mg Capsule PO 0.4 mg DAILY VANDA Administration Radiology Results: ITS Impressions Head CT 12/21/23 08:40 IMPRESSION: 1. 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 2. Mild
[2023-12-30] MEDS: LORazepam INJ (*CRX) 2 MG/ML VIAL 1 MG IV PUSH (20:28)
[2023-12-30] MEDS: DONEPEZIL HCL 5 MG TABLET PO (20:28)
[2023-12-30] MEDS: risperiDONE 1 MG TABLET 2 MG PO (20:28)
[2023-12-31] VITALS: BP 115/66
[2023-12-31] MEDS: OLANZapine 5 MG TABLET PO ×3 (01:47→21:54)
[2023-12-31 03:51] VITALS: BP 108/66; PULSE 70; PULSE 72; RESP 14; O2SAT 98
[2023-12-31 08:00] VITALS: BP 116/76; PULSE 79; PULSE 87; RESP 13; RESP 17; TEMP 36.6; O2SAT 96; O2SAT 97
[2023-12-31] MEDS: TAMSULOSIN HCL 0.4 MG CAPSULE PO (08:00)
[2023-12-31] MEDS: SERTRALINE HCL 50 MG TABLET PO (08:00)
[2023-12-31] MEDS: PANTOPRAZOLE 40 MG TABLET PO (08:00)
[2023-12-31] MEDS: ENOXAPARIN 40 MG/0.4 ML SYRINGE SUB-Q (08:00)
[2023-12-31] MEDS: MEMANTINE 10 MG TABLET PO ×2 (08:00→21:54)
[2023-12-31] MEDS: NICOTINE (*PBKC) 14 MG PATCH 1 PATCH TRANSDERM (08:00)
[2023-12-31 10:00] VITALS: PULSE 87
--- NOTE | 2023-12-31 11:20 | PCPTNOTE ---
Attempted PT evaluation, pt currently resting comfortably. Per RN, pt agitated/aggressive this morning. Due to pt's history of violent behavior/confusion, therapy will wait to evaluate pt when behavioral appropriate for provider and pt safety. Current Hospitalist, Dr. Pimentel, Aware of situation.
[2023-12-31 11:28] VITALS: O2SAT 97
[2023-12-31 12:00] VITALS: BP 111/82; PULSE 87; RESP 17; TEMP 36.4; O2SAT 96
--- NOTE | 2023-12-31 12:45 | PCOTNOTE ---
Attempted OT evaluation, pt currently resting comfortably. Per RN, pt agitated/aggressive this morning. Due to pt's history of violent behavior/confusion, therapy will wait to evaluate pt when behavioral appropriate for provider and pt safety. Current Hospitalist, Dr. Pimentel, Aware of situation.
[2023-12-31] MEDS: LORazepam INJ (*CRX) 2 MG/ML VIAL 1 MG IM (13:54)
--- NOTE | 2023-12-31 15:06 | PM.IMPN ---
Progress Note: A&P Assessment and Plan (1) Acute encephalopathy: Code(s): G93.40 - Encephalopathy, unspecified Status: Acute (2) Alzheimer's dementia with behavioral disturbance: Code(s): G30.9 - Alzheimer's disease, unspecified; F02.818 - Dementia in other diseases classified elsewhere, unspecified severity, with other behavioral disturbance Status: Acute (3) Elevated alkaline phosphatase level: Code(s): R74.8 - Abnormal levels of other serum enzymes Status: Acute (4) Intertrochanteric fracture: Qualifiers: Encounter type: initial encounter Fracture alignment: displaced Fracture type: closed Laterality: left Qualified Code(s): S72.142A - Displaced intertrochanteric fracture of left femur, initial encounter for closed fracture Code(s): S72.143A - Displaced intertrochanteric fracture of unspecified femur, initial encounter for closed fracture Status: Acute (5) Leukocytosis: Code(s): D72.829 - Elevated white blood cell count, unspecified Status: Acute Plan A 63-year-old male with a history of Alzheimer's dementia and depression. He had a fall in November and and subsequently underwent an intra medullary sarah of the left hip with Dr. Lombardi on 12/15/2023. At that time it was noted he had more confusion. He was discharged home on 12/17 but readmitted on 12/21 due to worsening confusion and aggressiveness. Unfortunately, the patient's behavioral disturbance/psychosis has been so far under managed. Discussion held with Dr. Nichols on 12/29. He will write a formal progress note tomorrow on 12/30. For now he suggests increasing the Risperdal 0.5 mg to 2 mg q.h.s.. The patient has been receiving this nightly dose of 0.5 thus far. Scheduled Zyprexa has been discontinued. Continue Zyprexa 10 mg p.o. or IM b.i.d. p.r.n. Ativan 0.5 mg q.6 hours p.r.n. IV has been changed to p.o. or IM. Continue Seroquel b.i.d. and sertraline daily, donepezil and memantine. CT head conducted on 12/14/2023 which was during the admission where his hip was repaired. Nothing was seen then. 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 Agree with Dr. Nichols there has been a stroke in the recent past which may have much to do with his worsened mental status superimposed on Alzheimer's dementia. Acetaminophen and salicylate level were not drawn however he does not have an acid-base disturbance so it is unlikely these are the culprit. I have added an ammonia level for the next time we can get blood work as that has not been checked. He does have an elevated and increasing alkaline phosphatase. However, gamma glutamyl transpeptidase is normal. I checked a procalcitonin and it was unremarkable at 0.1. His white count has been increasing over the past 3 days however no differential was drawn. Suspect there is a left shift just like there was on admission. Will check CBC with differential ongoing. He may or may not benefit from antibiotics due to the above along with MRI brain and malone scan and lumbar puncture. Repeat UA has been checked, it was abnormal on 12/21/2023 with elevated leuk esterase and wbc's however urine culture was unremarkable. I am unable to determine the timing of which ceftriaxone was given so I do not know how reliable the UA and culture are. Call made out to [facility] and they do not have a bed available. Call made out to [facility] and a transfer is pending. I was told the 1st transfer request was denied because the orthopedic surgery team could not make a care plan including weight-bearing orders etc. I let Becky ([phone] option 1) at the transfer center know that with this information I do not see reason for denial of the transfer and asked that this be re-evaluated seriously. The patient does need and qualify for tertiary care. She said she would do so and is coordinating with the
[2023-12-31] MEDS: ACETAMINOPHEN 325 MG TABLET 650 MG PO (21:54)
[2023-12-31] MEDS: risperiDONE 1 MG TABLET 2 MG PO (21:55)
[2023-12-31] MEDS: DONEPEZIL HCL 5 MG TABLET PO (21:55)
[2024-01-01] VITALS: BP 99/61; PULSE 66; RESP 14; TEMP 36.9; O2SAT 98
--- NOTE | 2024-01-01 08:38 | PCOTNOTE ---
Attempted to see pt. for occupational therapy evaluation. Pt. currently sleeping, nursing requesting pt. not be disturbed at this time, due to history of agitation and violent behavior while awake. Follow.
[2024-01-01] MEDS: SERTRALINE HCL 50 MG TABLET PO (12:13)
[2024-01-01] MEDS: TAMSULOSIN HCL 0.4 MG CAPSULE PO (12:13)
[2024-01-01] MEDS: ENOXAPARIN 40 MG/0.4 ML SYRINGE SUB-Q (12:14)
[2024-01-01] MEDS: PANTOPRAZOLE 40 MG TABLET PO (12:14)
[2024-01-01] MEDS: NICOTINE (*PBKC) 14 MG PATCH 1 PATCH TRANSDERM (12:14)
[2024-01-01] MEDS: MEMANTINE 10 MG TABLET PO ×2 (12:14→20:15)
[2024-01-01] MEDS: polyethylene glycoL 3350 17 GM POWD.PACK PO (12:14)
[2024-01-01 12:18] VITALS: BP 116/63; PULSE 75; RESP 12; TEMP 36.7; O2SAT 96
--- NOTE | 2024-01-01 12:56 | PM.PNORT ---
Progress Note: A&P Assessment and Plan (1) Closed hip fracture: Qualifiers: Encounter type: subsequent encounter Fracture healing: with routine healing Laterality: left Qualified Code(s): S72.002D - Fracture of unspecified part of neck of left femur, subsequent encounter for closed fracture with routine healing Code(s): S72.009A - Fracture of unspecified part of neck of unspecified femur, initial encounter for closed fracture Status: Acute Assessment and Plan: History and exam reviewed. Left hip lateral incision is clean, dry and intact, incision well approximated. No signs of infection. Sienna have been removed. Patient is able to flex and extend the left hip without evidence of pain. PROM with internal and external rotation without evidence of pain. Patient is able to flex and extend the left foot/ankle. Palpable pedal pulses. Sensation intact. Patient is currently awaiting transfer to a higher level of care for his behavioral disturbances and early-onset dementia. From an orthopedic standpoint, the patient is medically stable. He is ambulating with assistance. His incision appears appropriate in terms of his postoperative status. We will obtain radiographs to ensure no changes. However, patient is medically stable from an orthopedic standpoint to be transferred to a tertiary care center. The patient has a scheduled follow-up appointment in 4 weeks in the outpatient orthopedic clinic. As previously stated, we will obtain new radiographs today in the event patient is unable to make his scheduled follow-up appointment in 4 weeks if under further care at an outside facility. Continue DVT prophylaxis x28 days from date of surgery. WBAT. Walker for assistance. Fall precautions given mental status. (2) Leukocytosis: Code(s): D72.829 - Elevated white blood cell count, unspecified Status: Acute (3) Acute encephalopathy: Code(s): G93.40 - Encephalopathy, unspecified Status: Acute (4) Elevated alkaline phosphatase level: Code(s): R74.8 - Abnormal levels of other serum enzymes Status: Acute (5) Alzheimer's dementia with behavioral disturbance: Code(s): G30.9 - Alzheimer's disease, unspecified; F02.818 - Dementia in other diseases classified elsewhere, unspecified severity, with other behavioral disturbance Status: Acute (6) Elevated LFTs: Code(s): R79.89 - Other specified abnormal findings of blood chemistry Status: Acute (7) Combative behavior: Code(s): R46.89 - Other symptoms and signs involving appearance and behavior Status: Acute Subjective Subjective Date/Time Seen: 01/01/24 12:56 Interval history: Patient is 2 weeks, 3 days status post insertion of intramedullary sarah of the left hip status post hip fracture. Patient has a history of dementia. He was initially discharged home under the care of his sister and girlfriend. However, patient's mental status has been increasingly declining, most specifically in the evening. He has been violent and combative both at home and here on the unit. We are evaluating the patient today from an orthopedic standpoint. The patient's incision on the left lateral hip is clean, dry nad intact. Incision is well approximated and the sienna have been removed. Patient is able to flex and extend the left leg without evidence of pain. Internal and external rotation of the left hip without evidence of pain as well. Patient is able to flex/extend the left foot/ankle and he is ambulating with the assistance of the PCT at the bedside. Patient is up in the chair at time of exam eating lunch. He is unable to answer questions appropriately given current mental status changes and history of early onset dementia. Review of Systems Review of Systems: ROS unobtainable: Yes unobtainable due to mental status Exam Const: General: comfortable and no acute distress Resp: Effort & Inspection: nor
[2024-01-01 19:10] VITALS: BP 110/59; PULSE 72; RESP 16; TEMP 36.9; O2SAT 97
[2024-01-01] MEDS: DONEPEZIL HCL 5 MG TABLET PO (20:15)
[2024-01-01] MEDS: OLANZapine 5 MG TABLET PO (20:15)
[2024-01-01] MEDS: ACETAMINOPHEN 325 MG TABLET 650 MG PO (20:16)
[2024-01-01] MEDS: risperiDONE 1 MG TABLET 2 MG PO (20:16)
[2024-01-02] VITALS: BP 104/86; PULSE 79; RESP 16; TEMP 37.1; O2SAT 100
[2024-01-02] MEDS: LORazepam INJ (*CRX) 2 MG/ML VIAL 1 MG IM (01:44)
[2024-01-02 08:00] VITALS: BP 104/74; PULSE 74; RESP 16; TEMP 36.7; O2SAT 96
[2024-01-02] MEDS: polyethylene glycoL 3350 17 GM POWD.PACK PO (08:26)
[2024-01-02] MEDS: NICOTINE (*PBKC) 14 MG PATCH 1 PATCH TRANSDERM (08:27)
[2024-01-02] MEDS: TAMSULOSIN HCL 0.4 MG CAPSULE PO (08:28)
[2024-01-02] MEDS: PANTOPRAZOLE 40 MG TABLET PO (08:28)
[2024-01-02] MEDS: ENOXAPARIN 40 MG/0.4 ML SYRINGE SUB-Q (08:28)
[2024-01-02] MEDS: SERTRALINE HCL 50 MG TABLET PO (08:28)
[2024-01-02] MEDS: MEMANTINE 10 MG TABLET PO ×2 (08:28→21:19)
--- NOTE | 2024-01-02 11:35 | PC.NURSE ---
Patient sealed bag of medications in the med bin, containing narcotic norco taken to ICU today for storage in their safe.
--- NOTE | 2024-01-02 11:44 | PC.NURSE ---
Field ReviewerRagini, handed meds to nurse.
[2024-01-02 12:48] VITALS: BP 111/67; PULSE 76; RESP 12; TEMP 36.9; O2SAT 98
--- NOTE | 2024-01-02 14:22 | P.PNIM_ITS ---
Progress Note: A&P Assessment and Plan (1) Acute encephalopathy: Code(s): G93.40 - Encephalopathy, unspecified Status: Acute (2) Alzheimer's dementia with behavioral disturbance: Code(s): G30.9 - Alzheimer's disease, unspecified; F02.818 - Dementia in other diseases classified elsewhere, unspecified severity, with other behavioral disturbance Status: Acute (3) Elevated alkaline phosphatase level: Code(s): R74.8 - Abnormal levels of other serum enzymes Status: Acute (4) Intertrochanteric fracture: Qualifiers: Encounter type: initial encounter Fracture alignment: displaced Fracture type: closed Laterality: left Qualified Code(s): S72.142A - Displaced intertrochanteric fracture of left femur, initial encounter for closed fracture Code(s): S72.143A - Displaced intertrochanteric fracture of unspecified femur, initial encounter for closed fracture Status: Acute (5) Leukocytosis: Code(s): D72.829 - Elevated white blood cell count, unspecified Status: Acute Plan A 63-year-old male with a history of Alzheimer's dementia and depression. He had a fall in November and and subsequently underwent an intra medullary sarah of the left hip with Dr. Lombardi on 12/15/2023. At that time it was noted he had more confusion. He was discharged home on 12/17 but readmitted on 12/21 due to worsening confusion and aggressiveness. Unfortunately, the patient's behavioral disturbance/psychosis has been so far under managed. Discussion held with Dr. Nichols on 12/29. He will write a formal progress note tomorrow on 12/30. For now he suggests increasing the Risperdal 0.5 mg to 2 mg q.h.s.. The patient has been receiving this nightly dose of 0.5 thus far. Scheduled Zyprexa has been discontinued. Continue Zyprexa 10 mg p.o. or IM b.i.d. p.r.n. Ativan 0.5 mg q.6 hours p.r.n. IV has been changed to p.o. or IM. Continue Seroquel b.i.d. and sertraline daily, donepezil and memantine. CT head conducted on 12/14/2023 which was during the admission where his hip was repaired. Nothing was seen then. 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 Agree with Dr. Nichols there has been a stroke in the recent past which may have much to do with his worsened mental status superimposed on Alzheimer's dementia. Acetaminophen and salicylate level were not drawn however he does not have an acid-base disturbance so it is unlikely these are the culprit. I have added an ammonia level for the next time we can get blood work as that has not been checked. He does have an elevated and increasing alkaline phosphatase. However, gamma glutamyl transpeptidase is normal. I checked a procalcitonin and it was unremarkable at 0.1. His white count has been increasing over the past 3 days however no differential was drawn. Suspect there is a left shift just like there was on admission. Will check CBC with differential ongoing. He may or may not benefit from antibiotics due to the above along with MRI brain and malone scan and lumbar puncture. Repeat UA has been checked, it was abnormal on 12/21/2023 with elevated leuk esterase and wbc's however urine culture was unremarkable. I am unable to determine the timing of which ceftriaxone was given so I do not know how reliable the UA and culture are. Call made out to [facility] and they do not have a bed available. Call made out to [facility] and a transfer is pending. I was told the 1st transfer request was denied because the orthopedic surgery team could not make a care plan including weight-bearing orders etc. I let Becky ([phone] option 1) at th
[2024-01-02 16:00] VITALS: BP 106/68; PULSE 65; RESP 12; TEMP 36.3; O2SAT 97
[2024-01-02] MEDS: risperiDONE 1 MG TABLET 2 MG PO (21:19)
[2024-01-02] MEDS: DONEPEZIL HCL 5 MG TABLET PO (21:19)
[2024-01-02] MEDS: OLANZapine 5 MG TABLET PO (21:19)
[2024-01-02] MEDS: ACETAMINOPHEN 325 MG TABLET 650 MG PO (21:19)
[2024-01-03] VITALS: BP 110/69; PULSE 68; RESP 14; TEMP 36.7; O2SAT 99
--- NOTE | 2024-01-03 03:10 | PC.NURSE ---
This patient, Mauricio Simmons, was transferred to [facility] on 01/03/24 at 0305. Personal belongings sent with patient. Report given to Mj DUONG. Appropriate documentation sent with patient. Patient's home medications handed to credit charge authorizer Katie to be placed in the safe on their unit.
[2024-01-03] MEDS: OLANZapine 5 MG TABLET PO (04:54)
[2024-01-03] MEDS: NICOTINE (*PBKC) 14 MG PATCH 1 PATCH TRANSDERM (09:15)
[2024-01-03] MEDS: SERTRALINE HCL 50 MG TABLET PO (09:15)
[2024-01-03] MEDS: PANTOPRAZOLE 40 MG TABLET PO (09:15)
[2024-01-03] MEDS: polyethylene glycoL 3350 17 GM POWD.PACK PO (09:15)
[2024-01-03] MEDS: ENOXAPARIN 40 MG/0.4 ML SYRINGE SUB-Q (09:15)
[2024-01-03] MEDS: TAMSULOSIN HCL 0.4 MG CAPSULE PO (09:15)
[2024-01-03] MEDS: MEMANTINE 10 MG TABLET PO ×2 (09:15→20:30)
[2024-01-03] MEDS: OLANZapine 5 MG, WATER, STERILE FOR INJECTION 2.1 ML IM (13:09)
[2024-01-03 14:37] VITALS: BP 117/70; PULSE 65; RESP 18; TEMP 36.6; O2SAT 96
--- NOTE | 2024-01-03 17:59 | PC.NURSE ---
Pt removed IV out of L arm. notified. okay with patient remaining without IV access at this time.
--- NOTE | 2024-01-03 18:40 | WPDPNPSYCH ---
Objective Data Vital Signs Vital Signs: Vital Signs - 24 hr 01/03/24 00:00 01/03/24 14:37 Temperature 98.1 F 97.8 F Pulse Rate 68 65 Respiratory Rate 14 18 Blood Pressure 110/69 117/70 Pulse Oximetry 99 96 Intake/Output Intake/Output: Intake & Output 12/31/23 01/01/24 01/02/24 01/03/24 23:59 23:59 23:59 23:59 Intake Total 5303 363 7251 1471 Output Total 150 200 419 5321 Balance 1150 300 155 296 Meds/Results Medications: Active Medications Generic Name Dose Route Start Last Admin Trade Name Freq PRN Reason Stop Dose Admin Acetaminophen 650 mg 12/22/23 16:39 01/02/24 21:19 Acetaminophen 325 Mg Tablet PO 650 mg Q6H PRN Administration Mild Pain (1-3) or Fever Olanzapine 5 mg/ Sterile Water 0 mg 12/30/23 20:59 01/03/24 13:09 2.1 ml IM 5 mg BID PRN Administration Agitation Donepezil HCl 5 mg 12/22/23 21:00 01/02/24 21:19 Donepezil Hcl 5 Mg Tablet PO 5 mg HS VANDA Administration Enoxaparin Sodium 40 mg 12/22/23 09:00 01/03/24 09:15 Enoxaparin 40 Mg/0.4 Ml Syringe SUB-Q 40 mg DAILY VANDA Administration Lorazepam 1 mg 12/30/23 20:47 Lorazepam (*Crx) 1 Mg Tablet PO TID PRN Agitation Lorazepam 1 mg 12/30/23 20:48 01/02/24 01:44 Lorazepam Inj (*Crx) 2 Mg/Ml Vial IM 1 mg TID PRN Administration Agitation Memantine 10 mg 12/22/23 11:20 01/03/24 09:15 Memantine 10 Mg Tablet PO 10 mg Q12HR VANDA Administration Nicotine 1 patch 12/29/23 21:55 01/03/24 09:15 Nicotine (*Pbkc) 14 Mg Patch TRANSDERM 1 patch DAILY VANDA Administration Olanzapine 5 mg 12/30/23 20:40 01/03/24 04:54 Olanzapine 5 Mg Tablet PO 5 mg BID PRN Administration psychosis Ondansetron HCl 4 mg 12/21/23 13:25 Ondansetron Inj 4 Mg/2 Ml Vial IV PUSH Q6H PRN Nausea And Vomiting Pantoprazole Sodium 40 mg 12/29/23 12:55 01/03/24 09:15 Pantoprazole 40 Mg Tablet PO 40 mg QAM VANDA Administration Polyethylene Glycol 17 gm 12/31/23 09:00 01/03/24 09:15 Polyethylene Glycol 3350 17 Gm Powd.Pack PO 17 gm QAM VANDA Administration Risperidone 2 mg 12/29/23 21:00 01/02/24 21:19 Risperidone 1 Mg Tablet PO 2 mg QHS VANDA Administration Sertraline HCl 50 mg 12/22/23 11:20 01/03/24 09:15 Sertraline Hcl 50 Mg Tablet PO 50 mg DAILY VANDA Administration Tamsulosin HCl 0.4 mg 12/22/23 11:20 01/03/24 09:15 Tamsulosin Hcl 0.4 Mg Capsule PO 0.4 mg DAILY VANDA Administration Radiology Results: ITS Impressions Head CT 12/21/23 08:40 IMPRESSION: 1. 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 2. Mild nonspecific cerebral white matter disease, which likely represents chronic small vessel ischemic disease. Abdomen Ultrasound 12/22/23 08:20 IMPRESSION: 1. Normal right upper quadrant ultrasound. Abdomen X-Ray 12/30/23 14:36 IMPRESSION: 1. Bladder stones. Chest X-Ray 12/30/23 14:40 IMPRESSION: 1. No acute cardiopulmonary disease. Hip/Pelvis X-Ray 01/01/24 15:03 IMPRESSION: Status post ORIF left hip Subjective Date/time seen: 01/03/24 18:40 Interval history: CHIEF COMPLAINT/REASON FOR CONSULTATION:? Patient is a 63-year-old gentleman admitted to the Medicine Service from the emergency department at [facility] for mental status changes.? Psychiatric consultation is for agitated dementia. REASON FOR PATIENT ENCOUNTER: Subsequent care of established inpatient INTERVAL HISTORY: Nursing report: Patient is poor unless he has been sedated. His appetite is good. Vital signs are stable. Has poor impulse control. He wants to get out of the bed. He will. Once out of the goal to redirect back into go to the car. 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
[2024-01-03 19:57] VITALS: BP 125/78; PULSE 65; RESP 18; TEMP 37; O2SAT 97
[2024-01-03] MEDS: DONEPEZIL HCL 5 MG TABLET PO (20:30)
[2024-01-03] MEDS: risperiDONE 1 MG TABLET 2 MG PO (20:30)
[2024-01-03] MEDS: ACETAMINOPHEN 325 MG TABLET 650 MG PO (20:30)
[2024-01-03 23:54] VITALS: BP 105/72; PULSE 67; RESP 14; TEMP 37; O2SAT 95
[2024-01-04 06:10] LABS: Basophils Absolute Auto 0.1 K/mm3 (0.0-0.1); Basophils Percent Auto 0.8 % (0.2-1.2); Eosinophils Absolute Auto 0.2 K/mm3 (0-0.3); Eosinophils Percent Auto 2.1 % (0-4.4); Hematocrit 38.9 % (42.0-52.0); Immature Granulocyte Absolute 0.01 K/mm3 (0.00-0.031); Immature Granulocyte Percent A 0.1 % (0-0.5); Lymphocytes Absolute Auto 1.53 K/mm3 (0.9-3.2); Lymphocytes Percent Auto 19.8 % (18.3-44.2); Mean Corpuscular HGB Conc 30.8 g/dl (32-36); Mean Corpuscular Hemoglobin 28.7 pg (26-34); Mean Corpuscular Volume 93.1 fl (80-100); Mean Platelet Volume 9.8 fl (7.4-10.4); Monocytes Absolute Auto 0.7 K/mm3 (0.1-0.6); Monocytes Percent Auto 8.5 % (2.6-8.5); Neutrophils Absolute Auto 5.3 K/mm3 (1.3-6.7); Neutrophils Percent Auto 68.7 % (45.5-73.1); Platelet Count Result 425 k/mm3 (150-375); Red Blood Count 4.18 M/mm3 (4.6-6.20); Red Cell Distribution Width 13.5 % (11.5-14.5); White Blood Count 7.7 K/mm3 (4.5-10.0)
[2024-01-04 06:25] LABS: Alanine Aminotransferase 25 U/L (6-50); Albumin Level 3.6 g/dL (3.5-5.1); Alkaline Phosphatase 316 U/L (38-126); Anion Gap 6 mmol/L (8-16); Aspartate Amino Transferase 34 U/L (17-59); Bilirubin,Total 0.6 mg/dL (0.2-1.3); Blood Urea Nitrogen 17 mg/dL (9-20); Calcium 9.1 mg/dL (8.4-10.2); Carbon Dioxide 28 mmol/L (22-30); Chloride 103 mmol/L (98-107); Estimated CRCL calculation 82 ml/min; Estimated Glomerular Filt Rate > 60; Glucose 106 mg/dL (65-110); Potassium 3.8 mmol/L (3.4-5.0); Sodium 137 mmol/L (137-145)
[2024-01-04] MEDS: ENOXAPARIN 40 MG/0.4 ML SYRINGE SUB-Q (08:51)
[2024-01-04] MEDS: NICOTINE (*PBKC) 14 MG PATCH 1 PATCH TRANSDERM (08:54)
[2024-01-04] MEDS: OLANZapine 5 MG, WATER, STERILE FOR INJECTION 2.1 ML IM (12:06)
--- NOTE | 2024-01-04 13:02 | PM.IMPN ---
Progress Note: A&P Assessment and Plan (1) Acute encephalopathy: Code(s): G93.40 - Encephalopathy, unspecified Status: Acute Assessment and Plan: Patient with worsening mental status changes superimposed on Alzheimer's dementia. B12. folate and TSH normal. Ammonia <9. VitD 25-OH low and replacement ordered. RPR nonreactive. Hepatitis and HIV negative. Influenza, RSV and COVID PCR negative. Dr. Nichols consulted and appreciate their input. on 12/29. He will write a formal progress note tomorrow on 12/30. For now he suggests Risperdal started and dose advanced. Zyprexa and Ativan available prn. Continue to encourage staff to have patient up out of bed during the day and discourage over-sleeping during the day. Placement being arranged. (2) Hx of completed stroke: Code(s): Z86.73 - Personal history of transient ischemic attack (TIA), and cerebral infarction without residual deficits Status: Acute Assessment and Plan: MRI brain Dec 2022 showing mild-moderate chronic microvascular disease. CT head 12/14/23 during the last admission showing no significant abnormalities and no mention of old CVA Repeat CT 12/21 again showing no acute findings but mentions old CVA left cerebellum and chronic small-vessel Add ASA and Lipitor. (3) Alzheimer's dementia with behavioral disturbance: Code(s): G30.9 - Alzheimer's disease, unspecified; F02.818 - Dementia in other diseases classified elsewhere, unspecified severity, with other behavioral disturbance Status: Acute Assessment and Plan: Patient with early onset dementia. His memantine, donepezil and sertraline resumed here. Other adjustments as above (4) Leukocytosis: Code(s): D72.829 - Elevated white blood cell count, unspecified Status: Acute Assessment and Plan: WBC climbed to 15K. UA negative 12/29. CXR 12/30 clear. PCT 0.1 WBC normal on no abx. Follow (5) Intertrochanteric fracture: Qualifiers: Encounter type: initial encounter Fracture alignment: displaced Fracture type: closed Laterality: left Qualified Code(s): S72.142A - Displaced intertrochanteric fracture of left femur, initial encounter for closed fracture Code(s): S72.143A - Displaced intertrochanteric fracture of unspecified femur, initial encounter for closed fracture Status: Acute Assessment and Plan: Patient had a fall in November and found to have hip fracture. He subsequently underwent an intra medullary sarah of the left hip with Dr. Lombardi on 12/15/2023. [place] out. Ortho consulted and appreciate their input Repeat imaging s/p ORIF left hip (6) Elevated alkaline phosphatase level: Code(s): R74.8 - Abnormal levels of other serum enzymes Status: Acute Assessment and Plan: Related to above and subsequent bed rest. Not felt related to biliary issues Follow Plan GI prophylaxis: Protonix DVT prophylaxis: Lovenox Code Status: Full code Subjective Date/time seen: 01/04/24 13:02 Interval history: 63yo male with dementia and depression here for alterred mental status. Was awake all day yesterday but up all night last night. Unable to provide hx. Review of Systems Review of Systems: ROS unobtainable: Yes unobtainable due to mental status Exam Narrative: AF 98.6 105/72 67 14 95% ra Gen - NARD Chest - lungs clear anteriorly. nml RR CV - RRR S1/S2 Abd - Soft, NT/ND, Positive BS Ext - No pedal edema. Psych - calm and cooperative at times; confused Skin - Warm and dry Objective Data Vital Signs Vital Signs: Vital Signs - 24 hr 01/03/24 14:37 01/03/24 19:57 01/03/24 23:54 Temperature 97.8 F 98.6 F 98.6 F Pulse Rate 65 65 67 Respiratory Rate 18 18 14 Blood Pressure 117/70 125/78 105/72 Pulse Oximetry 96 97 95 Intake/Output Intake/Output: Intake & Output 01/01/24 01/02/24 01/03/24 01/04/24 23:59 23:59 23:59 23:59 I
[2024-01-04 13:29] LABS: Cholesterol 129 mg/dL (0-200); HDL Direct 34 mg/dL; Triglycerides 83 mg/dL (<150)
[2024-01-04 13:40] LABS: LDL Cholesterol Direct 85 mg/dL
[2024-01-04] MEDS: ATORVASTATIN 40 MG TABLET PO (15:35)
[2024-01-04] MEDS: ASPIRIN 81 MG CHEWABLE TABLET PO (15:35)
[2024-01-04] MEDS: SERTRALINE HCL 50 MG TABLET PO (15:35)
[2024-01-04] MEDS: PANTOPRAZOLE 40 MG TABLET PO (15:35)
[2024-01-04 15:54] VITALS: BP 110/66; PULSE 61; RESP 18; TEMP 36.5; O2SAT 97
[2024-01-04 19:14] VITALS: BP 121/77; PULSE 79; RESP 16; TEMP 36.9; O2SAT 97
[2024-01-04] MEDS: ACETAMINOPHEN 325 MG TABLET 650 MG PO (20:45)
[2024-01-04] MEDS: DONEPEZIL HCL 5 MG TABLET PO (20:46)
[2024-01-04] MEDS: risperiDONE 1 MG TABLET 2 MG PO (20:46)
[2024-01-04] MEDS: MEMANTINE 10 MG TABLET PO (20:46)
[2024-01-05] MEDS: ACETAMINOPHEN 325 MG TABLET 650 MG PO ×2 (03:20→20:39)
[2024-01-05 04:05] VITALS: BP 117/66; PULSE 63; RESP 16; TEMP 36.4; O2SAT 97
[2024-01-05] MEDS: NICOTINE (*PBKC) 14 MG PATCH 1 PATCH TRANSDERM (08:53)
[2024-01-05] MEDS: polyethylene glycoL 3350 17 GM POWD.PACK PO (08:53)
[2024-01-05] MEDS: MEMANTINE 10 MG TABLET PO ×2 (08:54→19:53)
[2024-01-05] MEDS: ATORVASTATIN 40 MG TABLET PO (08:54)
[2024-01-05] MEDS: TAMSULOSIN HCL 0.4 MG CAPSULE PO (08:54)
[2024-01-05] MEDS: risperiDONE 1 MG TABLET 2 MG PO ×2 (08:54→19:53)
[2024-01-05] MEDS: CHOLECALCIFEROL 1,000 UNITS TABLET 1000 UNITS PO (08:54)
[2024-01-05] MEDS: ASPIRIN 81 MG CHEWABLE TABLET PO (08:54)
[2024-01-05] MEDS: PANTOPRAZOLE 40 MG TABLET PO (08:54)
[2024-01-05] MEDS: ENOXAPARIN 40 MG/0.4 ML SYRINGE SUB-Q (08:55)
[2024-01-05] MEDS: SERTRALINE HCL 50 MG TABLET PO (08:55)
[2024-01-05 13:50] VITALS: BP 108/57; PULSE 97; RESP 18; TEMP 37.1; O2SAT 97
--- NOTE | 2024-01-05 15:04 | PM.IMPN ---
Progress Note: A&P Assessment and Plan (1) Acute encephalopathy: Code(s): G93.40 - Encephalopathy, unspecified Status: Acute Assessment and Plan: Patient with worsening mental status changes superimposed on Alzheimer's dementia. B12. folate and TSH normal. Ammonia <9. VitD 25-OH low and replacement ordered. RPR nonreactive. Hepatitis and HIV negative. Influenza, RSV and COVID PCR negative. Dr. Nichols consulted and appreciate their input. on 12/29. He will write a formal progress note tomorrow on 12/30. For now he suggests Risperdal started and dose advanced. Zyprexa and Ativan available prn. Continue to encourage staff to have patient up out of bed during the day and discourage over-sleeping during the day. Placement being arranged. (2) Hx of completed stroke: Code(s): Z86.73 - Personal history of transient ischemic attack (TIA), and cerebral infarction without residual deficits Status: Acute Assessment and Plan: MRI brain Dec 2022 showing mild-moderate chronic microvascular disease. CT head 12/14/23 during the last admission showing no significant abnormalities and no mention of old CVA Repeat CT 12/21 again showing no acute findings but mentions old CVA left cerebellum and chronic small-vessel ASA and Lipitor added (3) Alzheimer's dementia with behavioral disturbance: Code(s): G30.9 - Alzheimer's disease, unspecified; F02.818 - Dementia in other diseases classified elsewhere, unspecified severity, with other behavioral disturbance Status: Acute Assessment and Plan: Patient with early onset dementia. His memantine, donepezil and sertraline resumed here. Other adjustments as above (4) Leukocytosis: Code(s): D72.829 - Elevated white blood cell count, unspecified Status: Acute Assessment and Plan: WBC climbed to 15K. UA negative 12/29. CXR 12/30 clear. PCT 0.1 WBC normal on no abx. Follow (5) Intertrochanteric fracture: Qualifiers: Encounter type: initial encounter Fracture type: closed Fracture alignment: displaced Laterality: left Qualified Code(s): S72.142A - Displaced intertrochanteric fracture of left femur, initial encounter for closed fracture Code(s): S72.143A - Displaced intertrochanteric fracture of unspecified femur, initial encounter for closed fracture Status: Acute Assessment and Plan: Patient had a fall in November and found to have hip fracture. He subsequently underwent an intra medullary sarah of the left hip with Dr. Lombardi on 12/15/2023. [place] out. Ortho consulted and appreciate their input Repeat imaging s/p ORIF left hip showing no acute findings. (6) Elevated alkaline phosphatase level: Code(s): R74.8 - Abnormal levels of other serum enzymes Status: Acute Assessment and Plan: Related to above and subsequent bed rest. Not felt related to biliary issues Follow Plan Disp: discharge anytime GI prophylaxis: Protonix DVT prophylaxis: Lovenox Code Status: Full code Subjective Date/time seen: 01/05/24 15:04 Interval history: 63yo male with dementia and depression here for alterred mental status. He slept all night. Calm this morning. Review of Systems Review of Systems: ROS unobtainable: Yes unobtainable due to mental status Exam Narrative: AF 98.7 108/57 97 18 97% ra Gen - NARD Chest - lungs clear anteriorly to quiet respriations. nml RR CV - RRR S1/S2 Abd - Soft, NT/ND, Positive BS Ext - No pedal edema. Psych - calm and cooperative at times; confused Skin - Warm and dry Objective Data Vital Signs Vital Signs: Vital Signs - 24 hr 01/04/24 15:54 01/04/24 19:14 01/05/24 04:05 Temperature 97.7 F 98.4 F 97.6 F Pulse Rate 61 79 63 Respiratory Rate 18 16 16 Blood Pressure 110/66 121/77 117/66 Pulse Oximetry 97 97 97 01/05/24 13:50 Temperature 98.7 F Pulse Rate 97 Respiratory Rate 18 Blood Pre
[2024-01-05] MEDS: OLANZapine 5 MG TABLET PO (16:26)
[2024-01-05] MEDS: DONEPEZIL HCL 5 MG TABLET PO (19:53)
[2024-01-05 20:40] VITALS: BP 97/75; PULSE 70; RESP 18; TEMP 36.6; O2SAT 98
[2024-01-05] MEDS: LORazepam (*CRX) 1 MG TABLET PO (21:45)
[2024-01-06 06:46] VITALS: BP 104/63; PULSE 78; RESP 18; TEMP 36.4; O2SAT 90
[2024-01-06] MEDS: ENOXAPARIN 40 MG/0.4 ML SYRINGE SUB-Q (08:32)
[2024-01-06] MEDS: polyethylene glycoL 3350 17 GM POWD.PACK PO (08:32)
[2024-01-06] MEDS: NICOTINE (*PBKC) 14 MG PATCH 1 PATCH TRANSDERM (08:32)
[2024-01-06] MEDS: ASPIRIN 81 MG CHEWABLE TABLET PO (08:33)
[2024-01-06] MEDS: ATORVASTATIN 40 MG TABLET PO (08:33)
[2024-01-06] MEDS: PANTOPRAZOLE 40 MG TABLET PO (08:33)
[2024-01-06] MEDS: TAMSULOSIN HCL 0.4 MG CAPSULE PO (08:33)
[2024-01-06] MEDS: MEMANTINE 10 MG TABLET PO ×2 (08:33→20:08)
[2024-01-06] MEDS: risperiDONE 1 MG TABLET 2 MG PO ×2 (08:33→20:08)
[2024-01-06] MEDS: CHOLECALCIFEROL 1,000 UNITS TABLET 1000 UNITS PO (08:33)
[2024-01-06] MEDS: SERTRALINE HCL 50 MG TABLET PO (08:33)
--- NOTE | 2024-01-06 10:06 | PCNWS ---
Weekly nutritional screen. Patient is tolerating current diet with adequate intake, 100% on heart healthy with some intake of Ensure Compact. Ensure Compact BID for additional 220 kcal and 9 g protein each. No weight loss reported. No nutritional needs at this time.
[2024-01-06 14:00] VITALS: BP 107/65; PULSE 78; RESP 18; TEMP 37.1; O2SAT 98
--- NOTE | 2024-01-06 16:03 | PM.IMPN ---
Progress Note: A&P Assessment and Plan (1) Vitamin D deficiency: Code(s): E55.9 - Vitamin D deficiency, unspecified Status: Acute (2) Hx of completed stroke: Code(s): Z86.73 - Personal history of transient ischemic attack (TIA), and cerebral infarction without residual deficits Status: Acute (3) Leukocytosis: Code(s): D72.829 - Elevated white blood cell count, unspecified Status: Acute (4) Acute encephalopathy: Code(s): G93.40 - Encephalopathy, unspecified Status: Acute (5) Alzheimer's dementia with behavioral disturbance: Code(s): G30.9 - Alzheimer's disease, unspecified; F02.818 - Dementia in other diseases classified elsewhere, unspecified severity, with other behavioral disturbance Status: Acute Plan No changes. Continue to promote good sleep-wake cycle. Has not been eating wrist restraints. Dispo pending to psychiatric facility/long term. Full code Subjective Date/time seen: 01/06/24 16:03 Interval history: No acute overnight events Review of Systems Review of Systems: All systems reviewed & are unremarkable except as noted in HPI and below (Subjective) Exam Const: General: comfortable and no acute distress Other: Confused at times Neck: Neck: supple Resp: Effort & Inspection: normal respiratory effort Cardio: Rate: regular rate Rhythm: regular rhythm GI: GI Palp: Yes Soft to palpation and No Tenderness to palpation present (GI) Extrem: General: no edema Objective Data Vital Signs Vital Signs: Vital Signs - 24 hr 01/05/24 20:40 01/06/24 06:46 01/06/24 14:00 Temperature 97.9 F 97.5 F L 98.8 F Pulse Rate 70 78 78 Respiratory Rate 18 18 18 Blood Pressure 97/75 L 104/63 107/65 Pulse Oximetry 98 90 98 Intake/Output Intake/Output: Intake & Output 01/03/24 01/04/24 01/05/24 01/06/24 23:59 23:59 23:59 23:59 Intake Total 1893 1790 1944 880 Output Total 1675 925 350 Balance 268 539 2068 880 Meds/Results Medications: Active Medications Generic Name Dose Route Start Last Admin Trade Name Freq PRN Reason Stop Dose Admin Acetaminophen 650 mg 12/22/23 16:39 01/05/24 20:39 Acetaminophen 325 Mg Tablet PO 650 mg Q6H PRN Administration Mild Pain (1-3) or Fever Aspirin 81 mg 01/04/24 13:10 01/06/24 08:33 Aspirin 81 Mg Chewable Tablet PO 81 mg DAILY@0800 VANDA Administration Atorvastatin Calcium 40 mg 01/04/24 13:10 01/06/24 08:33 Atorvastatin 40 Mg Tablet PO 40 mg DAILY VANDA Administration Olanzapine 5 mg/ Sterile Water 0 mg 12/30/23 20:59 01/04/24 12:06 2.1 ml IM 5 mg BID PRN Administration Agitation Donepezil HCl 5 mg 12/22/23 21:00 01/05/24 19:53 Donepezil Hcl 5 Mg Tablet PO 5 mg HS VANDA Administration Enoxaparin Sodium 40 mg 12/22/23 09:00 01/06/24 08:32 Enoxaparin 40 Mg/0.4 Ml Syringe SUB-Q 40 mg DAILY VANDA Administration Lorazepam 1 mg 12/30/23 20:47 01/05/24 21:45 Lorazepam (*Crx) 1 Mg Tablet PO 1 mg TID PRN Administration Agitation Lorazepam 1 mg 12/30/23 20:48 01/02/24 01:44 Lorazepam Inj (*Crx) 2 Mg/Ml Vial IM 1 mg TID PRN Administration Agitation Memantine 10 mg 12/22/23 11:20 01/06/24 08:33 Memantine 10 Mg Tablet PO 10 mg Q12HR VANDA Administration Nicotine 1 patch 12/29/23 21:55 01/06/24 08:32 Nicotine (*Pbkc) 14 Mg Patch TRANSDERM 1 patch DAILY VANDA Administration Olanzapine 5 mg 12/30/23 20:40 01/05/24 16:26 Olanzapine 5 Mg Tablet PO 5 mg BID PRN Administration psychosis Ondansetron HCl 4 mg 12/21/23 13:25 Ondansetron Inj 4 Mg/2 Ml Vial IV PUSH Q6H PRN Nausea And Vomiting Pantoprazole Sodium 40 mg 12/29/23 12:55 01/06/24 08:33 Pantoprazole 40 Mg Tablet PO 40 mg QAM VANDA Administration Polyethylene Glycol 17 gm 12/31/23 09:00 01/06/24 08:32 Polyethylene Glycol 3350 17 Gm Powd.Pack PO 17 gm QAM VANDA Admin
[2024-01-06 20:00] VITALS: O2SAT 98
[2024-01-06] MEDS: DONEPEZIL HCL 5 MG TABLET PO (20:07)
[2024-01-06] MEDS: LORazepam (*CRX) 1 MG TABLET PO (20:08)
--- NOTE | 2024-01-06 21:03 | WPDPNPSYCH ---
Progress Note: A&P Assessment and Plan (1) Alzheimer's dementia with behavioral disturbance: Code(s): G30.9 - Alzheimer's disease, unspecified; F02.818 - Dementia in other diseases classified elsewhere, unspecified severity, with other behavioral disturbance Status: Acute (2) Hx of completed stroke: Code(s): Z86.73 - Personal history of transient ischemic attack (TIA), and cerebral infarction without residual deficits Status: Acute (3) Vitamin D deficiency: Code(s): E55.9 - Vitamin D deficiency, unspecified Status: Acute Objective Data Vital Signs Vital Signs: Vital Signs - 24 hr 01/06/24 06:46 01/06/24 14:00 01/06/24 20:00 Temperature 97.5 F L 98.8 F Pulse Rate 78 78 Respiratory Rate 18 18 Blood Pressure 104/63 107/65 Pulse Oximetry 90 98 98 Oxygen Delivery Room Air Intake/Output Intake/Output: Intake & Output 01/03/24 01/04/24 01/05/24 01/06/24 23:59 23:59 23:59 23:59 Intake Total 1893 1790 1944 1120 Output Total 1675 925 350 Balance 042 822 8686 1120 Meds/Results Medications: Active Medications Generic Name Dose Route Start Last Admin Trade Name Freq PRN Reason Stop Dose Admin Acetaminophen 650 mg 12/22/23 16:39 01/05/24 20:39 Acetaminophen 325 Mg Tablet PO 650 mg Q6H PRN Administration Mild Pain (1-3) or Fever Aspirin 81 mg 01/04/24 13:10 01/06/24 08:33 Aspirin 81 Mg Chewable Tablet PO 81 mg DAILY@0800 VANDA Administration Atorvastatin Calcium 40 mg 01/04/24 13:10 01/06/24 08:33 Atorvastatin 40 Mg Tablet PO 40 mg DAILY VANDA Administration Olanzapine 5 mg/ Sterile Water 0 mg 12/30/23 20:59 01/04/24 12:06 2.1 ml IM 5 mg BID PRN Administration Agitation Donepezil HCl 5 mg 12/22/23 21:00 01/06/24 20:07 Donepezil Hcl 5 Mg Tablet PO 5 mg HS VANDA Administration Enoxaparin Sodium 40 mg 12/22/23 09:00 01/06/24 08:32 Enoxaparin 40 Mg/0.4 Ml Syringe SUB-Q 40 mg DAILY VANDA Administration Lorazepam 1 mg 12/30/23 20:47 01/06/24 20:08 Lorazepam (*Crx) 1 Mg Tablet PO 1 mg TID PRN Administration Agitation Lorazepam 1 mg 12/30/23 20:48 01/02/24 01:44 Lorazepam Inj (*Crx) 2 Mg/Ml Vial IM 1 mg TID PRN Administration Agitation Memantine 10 mg 12/22/23 11:20 01/06/24 20:08 Memantine 10 Mg Tablet PO 10 mg Q12HR VANDA Administration Nicotine 1 patch 12/29/23 21:55 01/06/24 08:32 Nicotine (*Pbkc) 14 Mg Patch TRANSDERM 1 patch DAILY VANDA Administration Olanzapine 5 mg 12/30/23 20:40 01/05/24 16:26 Olanzapine 5 Mg Tablet PO 5 mg BID PRN Administration psychosis Ondansetron HCl 4 mg 12/21/23 13:25 Ondansetron Inj 4 Mg/2 Ml Vial IV PUSH Q6H PRN Nausea And Vomiting Pantoprazole Sodium 40 mg 12/29/23 12:55 01/06/24 08:33 Pantoprazole 40 Mg Tablet PO 40 mg QAM VANDA Administration Polyethylene Glycol 17 gm 12/31/23 09:00 01/06/24 08:32 Polyethylene Glycol 3350 17 Gm Powd.Pack PO 17 gm QAM VANDA Administration Risperidone 2 mg 01/03/24 19:05 01/06/24 20:08 Risperidone 1 Mg Tablet PO 2 mg Q12HR VANDA Administration Sertraline HCl 50 mg 12/22/23 11:20 01/06/24 08:33 Sertraline Hcl 50 Mg Tablet PO 50 mg DAILY VANDA Administration Tamsulosin HCl 0.4 mg 12/22/23 11:20 01/06/24 08:33 Tamsulosin Hcl 0.4 Mg Capsule PO 0.4 mg DAILY VANDA Administration Vitamin D 1,000 units 01/04/24 09:00 01/06/24 08:33 Cholecalciferol 1,000 Units Tablet PO 1,000 units DAILY VANDA Administration Radiology Results: ITS Impressions Head CT 12/21/23 08:40 IMPRESSION: 1. 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 2. Mild nonspecific cerebral white matter disease, which likely represents chronic small vessel ischemic disease. Abdomen Ultrasound 12/22/23 08:20 IMPRESSION: 1. Normal right upper quadrant ultrasound. Abdomen X-Ray 12/30/23 14:36 IMPRESSION: 1. Bladder stones
[2024-01-06 22:00] VITALS: BP 110/63; PULSE 78; RESP 16; TEMP 37.1; O2SAT 97
[2024-01-07] MEDS: TAMSULOSIN HCL 0.4 MG CAPSULE PO (09:48)
[2024-01-07] MEDS: NICOTINE (*PBKC) 14 MG PATCH 1 PATCH TRANSDERM (09:48)
[2024-01-07] MEDS: risperiDONE 1 MG TABLET 2 MG PO (09:49)
[2024-01-07] MEDS: PANTOPRAZOLE 40 MG TABLET PO (09:49)
[2024-01-07] MEDS: ASPIRIN 81 MG CHEWABLE TABLET PO (09:49)
[2024-01-07] MEDS: SERTRALINE HCL 50 MG TABLET PO (09:49)
[2024-01-07] MEDS: ENOXAPARIN 40 MG/0.4 ML SYRINGE SUB-Q (09:49)
[2024-01-07] MEDS: CHOLECALCIFEROL 1,000 UNITS TABLET 1000 UNITS PO (09:49)
[2024-01-07] MEDS: polyethylene glycoL 3350 17 GM POWD.PACK PO (09:49)
[2024-01-07] MEDS: ATORVASTATIN 40 MG TABLET PO (09:49)
[2024-01-07] MEDS: MEMANTINE 10 MG TABLET PO (09:49)
[2024-01-07 14:00] VITALS: BP 150/70; PULSE 70; RESP 18; TEMP 36.5; O2SAT 95
--- NOTE | 2024-01-07 14:45 | PM.DS ---
DS: Admitting Diagnosis Discharge Date January 07, 2024 Admitting Diagnosis Altered mental status DS: Discharge Diagnosis Discharge Diagnosis (1) Hx of completed stroke: Code(s): Z86.73 - Personal history of transient ischemic attack (TIA), and cerebral infarction without residual deficits Status: Acute (2) Vitamin D deficiency: Code(s): E55.9 - Vitamin D deficiency, unspecified Status: Acute (3) Leukocytosis: Code(s): D72.829 - Elevated white blood cell count, unspecified Status: Acute (4) Acute encephalopathy: Code(s): G93.40 - Encephalopathy, unspecified Status: Acute (5) Alzheimer's dementia with behavioral disturbance: Code(s): G30.9 - Alzheimer's disease, unspecified; F02.818 - Dementia in other diseases classified elsewhere, unspecified severity, with other behavioral disturbance Status: Acute (6) Intertrochanteric fracture: Qualifiers: Encounter type: initial encounter Fracture alignment: displaced Fracture type: closed Laterality: left Qualified Code(s): S72.142A - Displaced intertrochanteric fracture of left femur, initial encounter for closed fracture Code(s): S72.143A - Displaced intertrochanteric fracture of unspecified femur, initial encounter for closed fracture Status: Acute (7) Elevated alkaline phosphatase level: Code(s): R74.8 - Abnormal levels of other serum enzymes Status: Acute DS: Summary Hospital Course Hospital Course: This is a 63-year-old male with a history of Alzheimer's dementia and depression. He had a fall in November 2023 and subsequently underwent an intramedullary sarah placement of the left hip with Dr. Lombardi on 12/15/2023. Patient was observed to have confusion but eventually discharged to home on 12/17/2023. He was admitted to [facility] on 12/21 due to worsening confusion and aggressiveness at home. The patient's course this time was very complicated due to his behavioral disturbance. Essentially his is thought to have progressive Alzheimer's dementia with behavioral disturbance and is unable to return home due to this. Vitamin-D 1000 units per day has been prescribed for vitamin-D deficiency otherwise is B12 folate TSH ammonia RPR hepatitis and HIV along with influenza RSV and COVID were normal. He did require wrist restraints for some time as he was aggressive towards nursing staff although this was alleviated by Psychiatry consult Dr. Nichols's help and the addition of Risperdal to his existing sertraline memantine and donepezil. He also received p.r.n. dosing of Zyprexa. MRI brain did demonstrate [id number] chronic microvascular disease. There is possible vascular dementia in a stepwise fashion as a CT head on 12/14/2023 during his 1st episode of altered mental status while he was admitted for hip repair did not demonstrate a CVA and then on repeat CT on 12/21/2023 there is an old CVA of the left cerebellum. Therefore atorvastatin and aspirin have been added. The patient did have leukocytosis which resolved. It is unclear whether he had an infectious process or not. He also had an elevated alkaline phosphatase but otherwise his total bilirubin and transaminases were normal so this was thought to be unrelated. This should be followed as outpatient. On that note, extensive and exhaustive attempts made by physicians and Care coordinators to get the patient to a [facility] or inpatient psych Unit otherwise. He had been refused repeatedly for admission because of his medical comorbidities. Therefore 01/07/2024 he is discharged in stable condition to snf facility for permanent placement as he has been relatively stable in terms of his behavior, not needing restraints or p.r.n. antipsychotics. None the less he should follow up with outpatient primary care doctor, orthopedic surgeon, and Psychiatry. He was full code during his admission. Time Spent with Patient Time at
[2024-01-07 14:56] LABS: SARS-CoV-2 RNA PCR Negative (Negative)
--- NOTE | 2024-01-07 17:14 | PC.NURSE ---
Michelle Roles RN watching my patients while I am off the floor for a meeting from [phone]
== END 2024-01-07 16:24 | DRG 42 ==
LOC: ANHED 11:54 → ANH3MEDSUR 14:08 → ANH2MED 16:25 → ANHICU 12-29 13:36 → ANH3MEDSUR 01-03 03:21
PROVIDERS: Hospitalist; Internal Medicine Critical Care Medicine; Nurse Practitioner Family; Psychiatry & Neurology Psychiatry; Admitting Provider Internal Medicine; Emergency Provider Emergency Medicine; PCP Family Medicine Adolescent Medicine; Visit Provider General Practice
DX: G30.0 Alzheimer's disease with early onset (principal); F02.811 Dementia in other diseases classified elsewhere, unspecified severity, with agitation; G32.89 Other specified degenerative disorders of nervous system in diseases classified elsewhere; Z20.822 Contact with and (suspected) exposure to COVID-19; D72.829 Elevated white blood cell count, unspecified; N40.0 Benign prostatic hyperplasia without lower urinary tract symptoms; I10 Essential (primary) hypertension; F41.9 Anxiety disorder, unspecified; E86.0 Dehydration; D64.9 Anemia, unspecified; R74.8 Abnormal levels of other serum enzymes; E55.9 Vitamin D deficiency, unspecified; W19.XXXD Unspecified fall, subsequent encounter; F17.210 Nicotine dependence, cigarettes, uncomplicated; S72.142D Displaced intertrochanteric fracture of left femur, subsequent encounter for closed fracture with routine healing; Z86.73 Personal history of transient ischemic attack (TIA), and cerebral infarction without residual deficits
CPT/HCPCS: 36415; 70450; 71045; 73502; 74019; 76705; 80053; 80061; 80074; 80307; 81001; 82140; 82248; 82306; 82607; 82746; 82948; 82977; 83605; 83735; 84145; 85025; 85027; 85610; 85730; 86140; 86592; 86703; 87040; 87086; 87635; 87637; 93005; 96361; 96365; 96372; 96375; 97162; 97165; 99285; A9270; G0378; G0379; G0432; J0692; J0696; J1200; J1630; J1650; J2060; J2359; J7042